=== PATIENT | male | born 1950 | race Caucasian/White ===

== ENCOUNTER 2019-10-09 05:55 | Inpatient (IN) ==
[2019-10-09] MEDS ORDERED: SODIUM CHLORIDE 0.9% 1000ML 1,000 ML IV ONE (06:56)
[2019-10-09 07:35] LABS: Basophils # (auto) 0.02 K/uL (0-0.2); Basophils % (auto) 0.2 %; Eosinophils # (auto) 0.39 K/uL (0-0.5); Eosinophils % (auto) 3.7 %; Hematocrit (blood only) 49.5 % (42-52); Hemoglobin 17.6 g/dL (14.0-18.0); Immature Granulocytes # (auto) 0.03 K/uL (0.00-0.02); Immature Granulocytes % (auto) 0.3 %; Lymphocytes # (auto) 1.27 K/uL (1.2-3.4); Mean Corpuscular Hemoglobin 34.6 pg (25-34); Mean Corpuscular Hgb Conc 35.6 g/dL (32-36); Mean Corpuscular Volume 97.2 fL (80-100); Mean Platelet Volume 10.9 fL (7.4-10.4); Monocytes # (auto) 0.79 K/uL (0.11-0.59); Monocytes % (auto) 7.5 %; Neutrophils # (auto) 8.05 K/uL (1.4-6.5); Neutrophils % (auto) 76.3 %; Platelet Count 210 K/uL (130-400); RDW Coefficient of Variation 13.3 % (11.5-14.5); RDW Standard Deviation 47.5 fL (36.4-46.3); Red Blood Count 5.09 M/uL (4.7-6.1); White Blood Count 10.55 K/uL (4.8-10.8)
[2019-10-09 07:45] LABS: INR 1.1 (0.9-1.1); Partial Thromboplastin Ratio 0.9; Partial Thromboplastin Time 24.8 Seconds (21.0-31.0); Prothrombin Time 10.9 Seconds (9.0-12.0)
[2019-10-09 07:54] LABS: Alanine Aminotransferase 51 U/L (12-78); Albumin Level 3.4 gm/dl (3.4-5.0); Aspartate Aminotransferase 37 U/L (15-37); BUN Creatinine Ratio 20.1 (10-20); Blood Urea Nitrogen 27 mg/dl (7-18); Calcium 9.2 mg/dl (8.5-10.1); Carbon Dioxide 28 mmol/L (21-32); Chloride 105 mmol/L (98-107); Est GFR (African American) 62.2; Est GFR (Non-African American) 53.7; Glucose 119 mg/dl (70-99); Magnesium 1.8 mg/dl (1.8-2.4); Potassium 3.8 mmol/L (3.5-5.1); Sodium 137 mmol/L (136-145)
[2019-10-09 08:05] LABS: Albumin Globulin Ratio 0.8 (0.9-2); Alkaline Phosphatase 79 U/L (45-117); Bilirubin,Total 0.7 mg/dl (0.2-1); Creatine Kinase 162 U/L (39-308); Globulin 4.4 gm/dl (2.5-4.0); Phosphorus 3.5 mg/dl (2.5-4.9); Total Protein 7.8 gm/dl (6.4-8.2); Troponin I < 0.015 ng/ml (0-0.045)
[2019-10-09 08:28] LABS: Lyme Ab IgG w/WB Rflx Negative (Negative); Lyme Ab IgM w/WB Rflx Negative (Negative)
[2019-10-09] MEDS ORDERED: OPTIRAY 320 125ml IV PRN (08:33)
--- NOTE | 2019-10-09 08:45 | CT Scan Report ---
CT head/brain wo con CLINICAL HISTORY: 69 years-old Male with LLE weakness. Acute strokelike symptoms TECHNIQUE: Multiple axial CT images of the head were obtained without contrast. A dose lowering tech nique was utilized adhering to the principles of ALARA. COMPARISON: Head CT 10/01/2019. FINDINGS: No acute intracranial hemorrhage, midline shift, intracranial mass, hydrocephalus, territorial ischem ia or abnormal extra-axial collection. Age-related involutional changes. Patchy white matter hypodens ities suggest chronic microvascular ischemic disease. Areas of encephalomalacia related to remote inf arctions noted about the cerebellar hemispheres, thalami and left parietal lobe. Cerebral vascular ca lcifications are noted. The calvarium is intact. Mastoid air cells are clear. Rightward bowing and spurring of the nasal sep cecily. Mild mucosal thickening of the ethmoid air cells. Prior bilateral lens replacement. Soft tissues are unremarkable. IMPRESSION: No acute intracranial abnormality. ACT 112: Negative or not required by law. The above report was generated using voice recognition software. It may contain grammatical, syntax o r spelling errors. Electronically signed by: Gene Velez M.D. 10/09/2019 8:44 AM
--- NOTE | 2019-10-09 08:58 | CT Scan Report ---
CT abd pelvis IV con only CLINICAL HISTORY: Left lower abdominal/back pain. Urinary tract infection. Sciatica. Left lower extre mity weakness. COMPARISON STUDY: 2008 TECHNIQUE: The patient was scanned in a dynamic helical fashion during intravenous administration of 120 cc of Optiray 320. A dose lowering technique was utilized adhering to the principles of ALARA. CT DOSE: FINDINGS: Lower chest: There are dependent atelectatic changes present. Liver: No focal hepatic masses are visualized. There is minimal intrahepatic ductal prominence.. Gallbladder: Not visualized presumed surgically absent Spleen: Normal in size and attenuation. Pancreas: Unremarkable. Adrenal glands: Unremarkable. Kidneys: No solid renal masses are visualized. There is mild bilateral perinephric stranding. Bowel: There are no transition zones to indicate bowel obstruction. There is no evidence of acute div erticulitis. There are postsurgical changes present within the bowel with several anastomotic suture lines. The patient appears be status post a right hemicolectomy. There is a bowel containing umbilica l hernia with out evidence for current obstruction. There is also evident for a fat-containing suprau mbilical ventral hernia. There is also evidence for a bowel containing infraumbilical hernia without evidence of obstruction Peritoneum: There is no intraperitoneal free air or abdominal ascites. Vasculature: There is no evidence of abdominal aortic aneurysm. There are moderately extensive athero matous vascular calcifications. Adenopathy: There are shotty aortocaval lymph nodes which are not pathologically enlarged by size cri teria. Pelvic viscera: There is gas present within the bladder. There is a sigmoid bowel loop at the level o f a sigmoid anastomosis which is in close proximity to the bladder. A fistula cannot be excluded. Cli nical correlation in this regard is advocated. Skeletal structures: No destructive osseous lesions are seen. IMPRESSION: 1. No evidence of bowel obstruction. No evidence of free air 2. Multiple ventral hernias 3. Gas within the bladder. There is a sigmoid bowel loop which appears adherent to the anterior aspec t the bladder. This could indicate a enterovesical fistula. Clinical correlation and correlation with urinalysis is recommended. 4. Mild fullness of the left renal collecting system and ureter. No obstructing calculi identified 5. Extensive arterial atherosclerotic disease. ACT 112: Negative or not required by law. Electronically signed by: Dennis Licona M.D. 10/09/2019 8:57 AM
--- NOTE | 2019-10-09 08:58 | CT Scan Report ---
CT angio head w con, CT angio neck with con CLINICAL HISTORY: 69 years-old Male with LLE weakness. Acute strokelike symptoms COMPARISON STUDY: CT head of same day, CTA neck 10/02/2019 TECHNIQUE: Following the IV administration of 120 cc of Optiray 320, CT angiogram of the head and neck was performed from the aortic arch to the skull apex. Images are reviewed in the axial, sagittal, and coronal planes. 3-D MIPS images are crea denisse and assessed. IV contrast was administered without complication. All measurements were obtained a ccording to NASCET criteria. A dose lowering technique was utilized adhering to the principles of ALA RA. CT DOSE: 2329.31 mGy.cm FINDINGS: Occluded proximal left subclavian artery with reconstitution of flow distal to the left vertebral art jair origin is suggestive of subclavian steal, unchanged from comparison. The remainder of the bilater al subclavian arteries appear patent. Severe mixed plaque of the distal common carotid arteries, galvan tid bulbs and proximal internal carotid arteries. This results in less than 50% stenosis on the right in approximately 50-60% stenosis at the origin of the left ICA. There is less than 50% stenosis of t he proximal right ICA. Severe mostly calcified plaque of the cavernous and supraclinoid segments. This results in 60% lumina l narrowing of the cavernous segment right ICA, image 110 series 5. There is less than 50% stenosis o f the cavernous segment left ICA. Mild luminal narrowing of the supraclinoid segments, likely seconda ry to associated atherosclerotic vascular disease. Mild less than 50% luminal narrowing involves the bilateral middle cerebral arteries. The bilateral anterior cerebral arteries are widely patent. No ab normal intracranial enhancement identified. Calcified plaque at the origin of the left vertebral artery without high-grade stenosis. The left micky tebral artery appears patent. Calcified plaque at the origin of the right ICA results in approximatel y 50% stenosis. High-grade stenosis of approximately 80% involves the V2 segment right vertebral killian ry at the level of C4 (image 143 series 6). Diminutive V4 segment of the right vertebral artery. Unremarkable and patent basilar artery. origin of the left posterior cerebral artery. Posterior cerebral arteries are patent. Cerebral venous sinuses are also patent. Lung apices are clear without pneumothorax. Emphysema. Multinodular goiter with 4.0 cm right thyroid nodule. Soft tissues are otherwise unremarkable. Multilevel degenerative changes of the spine. IMPRESSION: 1. Severe mixed plaque of the distal common carotid arteries, carotid bulbs and proximal internal car otid arteries redemonstrated. This results in less than 50% stenosis on the right and approximately 5 0-60% stenosis of the proximal left ICA. 2. Occlusion of the proximal left subclavian artery with reconstitution of flow at the level of the l eft vertebral artery origin, unchanged from 10/02/2019 suggestive of subclavian steal syndrome. 3. 80% luminal narrowing of the V2 segment right vertebral artery at the level of C4, also unchanged. 4. 60% luminal narrowing of the cavernous segment right ICA. 5. Emphysema. 6. Multinodular goiter. Findings could be correlated with a nonemergent follow-up thyroid ultrasound. ACT 112: Negative or not required by law. The above report was generated using voice recognition software. It may contain grammatical, syntax o r spelling errors. Electronically signed by: Gene Velez M.D. 10/09/2019 8:56 AM
[2019-10-09 09:32] LABS: Appearance Urine Clear (Clear); Bacteria Urine Automated 2+ (Negative); Bilirubin Urine Negative (Negative); Blood Urine 1+ (Negative); Color Urine Yellow; Glucose Urine UA Negative (Negative); Ketones Urine Negative (Negative); Leukocyte Esterase Urine Trace (Negative); Nitrite Urine Negative (Negative); Protein Urine 3+ (Negative); RBC Urine Automated 0-4 /hpf (0-4); Specific Gravity Urine 1.021 (1.000-1.030); Urobilinogen Urine Negative (Negative)
--- NOTE | 2019-10-09 10:40 | Electrocardiogram Report ---
Test Reason : Blood Pressure : / mmHG Vent. Rate : 066 BPM Atrial Rate : 066 BPM P-R Int : 134 ms QRS Dur : 100 ms QT Int : 422 ms P-R-T Axes : 065 -63 -06 degrees QTc Int : 442 ms Normal sinus rhythm Left anterior fascicular block Nonspecific ST abnormality Abnormal ECG No previous ECGs available Confirmed by Joseph Vo ([id number]) on 10/09/2019 10:39:56 AM Referred By: REFERRED SELF Confirmed By:Joseph Vo
--- NOTE | 2019-10-09 12:33 | Emergency Department Note ---
Entered by Mary Bowen acting as a scribe for History of Present Illness General Chief complaint: Leg Weakness, Bilateral Stated complaint: CAN NOT WALK Time Seen by Provider: 10/09/19 06:35 Source: patient and family History of Present Illness Onset (ago): day(s) 9 Location: left (leg) and right (leg) Severity: similar to prior episodes Pain Consistency: + intermittent Quality: + other (leg weakness) Exacerbated By: + movement Associated symptoms: + weakness and + other (Positive leg weakness, hip pain, lower back numbness, cramps in calves. Negative neck pain. ); no fever/chills and no headaches Treatments prior to arrival: none The patient is a 69 year old male presenting to the Emergency Department complaining of intermittent leg weakness starting 9 days ago. The patients reports that both of the patients lower extremities are weak. She states that the patient cannot walk at times and had to crawl to the bathroom this morning. She explains that walking worsens the patients leg weakness and causes pain in the patients left hip. The patient notes that after walking his lower back sometimes feels numb. He adds that he sometimes gets cramps in his calves. The patients reports that the patient has fallen a few times in the past few days. She states that the patient has experienced these symptoms before as he was admitted to [facility] about 1 week ago for these symptoms and was thought to have had a mini stroke. She explains that the patient has an appointment with Dr. Umana vascular surgeon in October 2019 but that the patient cant wait that long to be seen. She notes that the patient has taken any medications for his symptoms [employer]. She adds that the patient was an alcoholic but stopped drinking cold turkey 3 years ago. The patient denies hitting his head, neck pain, fevers, chills and recently drinking alcohol. Home Medications Home Medications Medication Instructions Recorded Confirmed Type Symbicort 2 puff INHALATION BID 10/01/19 10/09/19 History hydrochlorothiazide 12.5 mg PO DAILY 10/01/19 10/09/19 History lisinopril 20 mg PO DAILY 10/01/19 10/09/19 History metformin 500 mg PO DAILY 10/01/19 10/09/19 History metoprolol succinate 200 mg PO DAILY 10/01/19 10/09/19 History tamsulosin 0.4 mg PO DAILY 10/01/19 10/09/19 History aspirin 81 mg PO DAILY #30 tab 10/03/19 10/09/19 Rx atorvastatin 40 mg PO QAM 30 Days #30 tab 10/03/19 10/09/19 Rx cephalexin [Keflex] 500 mg PO BID 7 Days #14 cap 10/03/19 10/09/19 Rx clopidogrel 75 mg PO QAM 30 Days #30 tab 10/03/19 10/09/19 Rx omeprazole 200 mg PO DAILY 10/09/19 10/09/19 History Allergies Allergy/AdvReac Type Severity Reaction Status Date / Time No Known Allergies Allergy Unknown ` Verified 10/09/19 06:15 Past Med/Surg History Medical History Benign prostatic hyperplasia Diabetes mellitus type 2 in nonobese Hyperlipidemia Hypertension Left subclavian artery occlusion Subclavian steal syndrome of left subclavian artery Transient ischemic attack Surgical History No pertinent past surgical history Family History Mother No pertinent family history Social History Preferred Language: Japanese Communication Ability: Effective Quality Head Required: No Beliefs That Will Affect Care: None marital status: Current Living Situation: Spouse Feels Safe at Home: Yes Smoking Status: Current every day smoker Hx Substance Use: No Review of Systems See HPI for pertinent positives & negatives. and A total of 10 systems reviewed and were otherwise negative Physical Exam Vital Signs Vital Signs - 24 hr 10/09/19 05:59 10/09/19 07:30 10/09/19 08:01 Temperature 36.8 C Temperature Source Oral Pulse Rate 73 66 61 Pulse Rate from SpO2 Sensor 65 59 L Respiratory Rate 18 15 12 Respiratory Effort / Characteristics Non-Labored Spontaneous Respiratory Depth Normal Respiratory Pattern Regular Blood Pressure 194/92 H 137/69 182/76 H Blood Pressure Mean 126 96 109 Blood Pressure Position Sitting Pulse Oximetry 95 93 95 Oxygen Delivery Method Room Air Sepsis Recent Fever Within 48 Hours No Sepsis New/Unexplained Change in Mental Status No Sepsis Action Taken by Nursing No Action Required 10/09/19 08:19 10/09/19 09:21 10/09/19 09:30 Temperature Temperature Source Pulse Rate 58 L 63 58 L Pulse Rate from SpO2 Sensor 59 L 61 58 L Respiratory Rate 19 16 16 Respiratory Effort / Characteristics Respiratory Depth Respiratory Pattern Blood Pressure 182/76 H 165/80 H 182/85 H Blood Pressure Mean 109 135 119 Blood Pressure Position Pulse Oximetry 97 96 96 Oxygen Delivery Method Sepsis Recent Fever Within 48 Hours Sepsis New/Unexplained Change in Mental Status Sepsis Action Taken by Nursing 10/09/19 10:00 10/09/19 10:30 10/09/19 11:00 Temperature Temperature Source Pulse Rate 62 61 64 Pulse Rate from SpO2 Sensor 61 62 Respiratory Rate 15 18 18 Respiratory Effort / Characteristics Respiratory Depth Respiratory Pattern Blood Pressure 178/94 H 176/102 H 168/91 H Blood Pressure Mean 122 126 125 Blood Pressure Position Pulse Oximetry 97 97 Oxygen Delivery Method Sepsis Recent Fever Within 48 Hours Sepsis New/Unexplained Change in Mental Status Sepsis Action Taken by Nursing 10/09/19 11:30 10/09/19 12:00 10/09/19 12:30 Temperature Temperature Source Pulse Rate 57 L 59 L 62 Pulse Rate from SpO2 Sensor 59 L 62 Respiratory Rate 19 18 22 Respiratory Effort / Characteristics Respiratory Depth Respiratory Pattern Blood Pressure 187/87 H 192/85 H 194/101 H Blood Pressure Mean 114 134 138 Blood Pressure Position Pulse Oximetry 94 96 Oxygen Delivery Method Sepsis Recent Fever Within 48 Hours Sepsis New/Unexplained Change in Mental Status Sepsis Action Taken by Nursing 10/09/19 13:00 10/09/19 13:30 Temperature Temperature Source Pulse Rate 63 62 Pulse Rate from SpO2 Sensor 62 62 Respiratory Rate 16 19 Respiratory Effort / Characteristics Respiratory Depth Respiratory Pattern Blood Pressure 175/97 H 174/129 H Blood Pressure Mean 140 134 Blood Pressure Position Pulse Oximetry 94 94 Oxygen Delivery Method Sepsis Recent Fever Within 48 Hours Sepsis New/Unexplained Change in Mental Status Sepsis Action Taken by Nursing GENERAL: Awake, alert, fatigued-appearing, in no distress HENT: Normocephalic, atraumatic. Oropharynx with dry mucous membranes and otherwise unremarkable. EYES: Normal conjunctiva. Sclera non-icteric. EOMI. No nystamgus. PEARRL. NECK: Supple. No nuchal rigidity. FROM. No JVD. RESPIRATORY: CTAB. CARDIAC: Regular rate, normal rhythm. Extremities warm and well perfused. Pulses equal. ABDOMEN: Soft, non-distended. No tenderness to palpation. No rebound or guarding. No masses. RECTAL: Deferred. MUSCULOSKELETAL: Chest examination reveals no tenderness. The back is symmetrical on inspection without obvious abnormality. There is no CVA tenderness to palpation. No joint edema. LOWER EXTREMITIES: Calves are equal size bilaterally and non-tender. No edema. No discoloration. NEURO: Normal sensorium. Subtle weakness of LLE with 4/5 strength, otherwise 5/5 strength. SILT. Intact finger to nose and alternating palms. SKIN: No rash or jaundice noted. Course Course 0638: The patient was evaluated in room B3B, and a complete history and physical examination were performed. 0651: EMR reviewed. The patient was admitted from 10/01/2019 to 10/03/2019 after being transferred from [facility] where he had testing done that demonstrated an occluded left subclavian artery with subclavian steel syndrome. The patient had MRI and MRA of head and neck that showed sequela of chronic micro ischemic disease with few foci of chronic or at least late subacute micro embolic infarcts. He had an area of gliosis in the left parietal occipital region with associated region of hemosiderin depositions as well as in the right frontal lobe. He had high grade stenosis at the origin of the right external carotid and 50% stenosis of the proximal left internal carotid. He was put on Aspirin and Plavix. They thought that the subclavian artery occlusion was likely chronic. 1014: I reevaluated the patient at this time. I updated the patient and his on the patients imaging studies and blood work. 1020: I reviewed the patients CT. He reports that he has known for many years that he has a chronic colo-vesicle fistula. He has agreed with his urologist to manage expectantly. 1153: I updated the patient and his at this time. The patient is agreeable to go to inpatient rehabilitation. 1400: I discussed the patients case with Dr. Umana vascular surgeon who recommends that the patient stay in the hospital. 1415: I discussed the patients case with Dr. Heath [facility] hospitalist. He will evaluate the patient for further management. Administered Medications Ioversol (Optiray 320 125ml) 120 ml IV ONCE PRN PRN Reason: Interaction Checking Stop: 10/13/19 08:32 Last Admin: 10/09/19 08:35 Dose: 120 ml Documented by: [id number] Discontinued Medications Sodium Chloride (Nss 1000ml) 1,000 mls @ 999 mls/hr IV .Q1H1M ONE Stop: 10/09/19 07:56 Last Infusion: 10/09/19 08:46 Dose: 0 mls/hr Documented by: [id number] Admin: 10/09/19 07:40 Dose: 999 mls/hr Documented by: [id number] Medical Decision Making Differential Diagnosis Differential Diagnosis includes but is not limited to dehydration, stroke, anemia, hypoglycemia, hyponatremia, hypernatremia, urinary tract infection, pneumonia, bronchitis, sepsis, gastroenteritis, additional abdominal pathology, metabolic abnormalities and infections. Medical Records Attestation: I reviewed the patient's medical records. Home Medications Current Medication List: was personally reviewed by me Laboratory Data Attestation: I reviewed the patient's lab results. Result diagrams: 10/09/19 07:14 10/09/19 07:14 Lab Results 10/09/19 10/09/19 10/09/19 Range/Units 07:14 07:14 07:14 WBC 10.55 (4.8-10.8) K/uL RBC 5.09 (4.7-6.1) M/uL Hgb 17.6 (14.0-18.0) g/dL Hct 49.5 (42-52) % MCV 97.2 (80-100) fL MCH 34.6 H (25-34) pg MCHC 35.6 (32-36) g/dL RDW Std Deviation 47.5 H (36.4-46.3) fL RDW Coeff of Emily 13.3 (11.5-14.5) % Plt Count 210 (130-400) K/uL MPV 10.9 H (7.4-10.4) fL Immature Gran % (Auto) 0.3 % Neut % (Auto) 76.3 % Lymph % (Auto) 12.0 % Hodgeman % (Auto) 7.5 % Eos % (Auto) 3.7 % Baso % (Auto) 0.2 % Immature Gran # (Auto) 0.03 H (0.00-0.02) K/uL Neut # (Auto) 8.05 H (1.4-6.5) K/uL Lymph # (Auto) 1.27 (1.2-3.4) K/uL Hodgeman # (Auto) 0.79 H (0.11-0.59) K/uL Eos # (Auto) 0.39 (0-0.5) K/uL Baso # (Auto) 0.02 (0-0.2) K/uL PT 10.9 (9.0-12.0) Seconds INR 1.1 (0.9-1.1) APTT 24.8 (21.0-31.0) Seconds PTT Ratio 0.9 Sodium 137 (136-145) mmol/L Potassium 3.8 (3.5-5.1) mmol/L Chloride 105 (98-107) mmol/L Carbon Dioxide 28 (21-32) mmol/L Anion Gap 4.0 (3-11) BUN 27 H (7-18) mg/dl Creatinine 1.34 (0.6-1.4) mg/dl Est Cr Clr Drug Dosing 60.0 ml/min Est GFR ( Amer) 62.2 Est GFR (Non-Af Amer) 53.7 BUN/Creatinine Ratio 20.1 H (10-20) Glucose 119 H (70-99) mg/dl POC Glucose (70-99) mg/dl Calcium 9.2 (8.5-10.1) mg/dl Phosphorus 3.5 (2.5-4.9) mg/dl Magnesium 1.8 (1.8-2.4) mg/dl Total Bilirubin 0.7 (0.2-1) mg/dl AST 37 (15-37) U/L ALT 51 (12-78) U/L Alkaline Phosphatase 79 (45-117) U/L Ammonia (11-32) umol/L Total Creatine Kinase 162 (39-308) U/L Troponin I < 0.015 (0-0.045) ng/ml Total Protein 7.8 (6.4-8.2) gm/dl Albumin 3.4 (3.4-5.0) gm/dl Globulin 4.4 H (2.5-4.0) gm/dl Albumin/Globulin Ratio 0.8 L (0.9-2) TSH 2.260 (0.300-4.500) uIu/ml Urine Color Urine Appearance (Clear) Urine pH (4.5-7.5) Ur Specific [place] (1.000-1.030) Urine Protein (Negative) Urine Glucose (UA) (Negative) Urine Ketones (Negative) Urine Blood (Negative) Urine Nitrite (Negative) Urine Bilirubin (Negative) Urine Urobilinogen (Negative) Ur Leukocyte Esterase (Negative) Urine WBC (Auto) (0-5) /hpf Urine RBC (Auto) (0-4) /hpf U Hyaline Cast (Auto) (0-5) /lpf U Epithel Cells (Auto) (0-5) /lpf Urine Bacteria (Auto) (Negative) Ethyl Alcohol mg/dL (0-3) mg/dl Lyme Disease IgG Ab (Negative) Lyme Disease IgM Ab (Negative) 10/09/19 10/09/19 10/09/19 Range/Units 07:14 07:14 07:14 WBC (4.8-10.8) K/uL RBC (4.7-6.1) M/uL Hgb (14.0-18.0) g/dL Hct (42-52) % MCV (80-100) fL MCH (25-34) pg MCHC (32-36) g/dL RDW Std Deviation (36.4-46.3) fL RDW Coeff of Emily (11.5-14.5) % Plt Count (130-400) K/uL MPV (7.4-10.4) fL Immature Gran % (Auto) % Neut % (Auto) % Lymph % (Auto) % Hodgeman % (Auto) % Eos % (Auto) % Baso % (Auto) % Immature Gran # (Auto) (0.00-0.02) K/uL Neut # (Auto) (1.4-6.5) K/uL Lymph # (Auto) (1.2-3.4) K/uL Hodgeman # (Auto) (0.11-0.59) K/uL Eos # (Auto) (0-0.5) K/uL Baso # (Auto) (0-0.2) K/uL PT (9.0-12.0) Seconds INR (0.9-1.1) APTT (21.0-31.0) Seconds PTT Ratio Sodium (136-145) mmol/L Potassium (3.5-5.1) mmol/L Chloride (98-107) mmol/L Carbon Dioxide (21-32) mmol/L Anion Gap (3-11) BUN (7-18) mg/dl Creatinine (0.6-1.4) mg/dl Est Cr Clr Drug Dosing ml/min Est GFR ( Amer) Est GFR (Non-Af Amer) BUN/Creatinine Ratio (10-20) Glucose (70-99) mg/dl POC Glucose (70-99) mg/dl Calcium (8.5-10.1) mg/dl Phosphorus (2.5-4.9) mg/dl Magnesium (1.8-2.4) mg/dl Total Bilirubin (0.2-1) mg/dl AST (15-37) U/L ALT (12-78) U/L Alkaline Phosphatase (45-117) U/L Ammonia 30.0 (11-32) umol/L Total Creatine Kinase (39-308) U/L Troponin I (0-0.045) ng/ml Total Protein (6.4-8.2) gm/dl Albumin (3.4-5.0) gm/dl Globulin (2.5-4.0) gm/dl Albumin/Globulin Ratio (0.9-2) TSH (0.300-4.500) uIu/ml Urine Color Urine Appearance (Clear) Urine pH (4.5-7.5) Ur Specific [place] (1.000-1.030) Urine Protein (Negative) Urine Glucose (UA) (Negative) Urine Ketones (Negative) Urine Blood (Negative) Urine Nitrite (Negative) Urine Bilirubin (Negative) Urine Urobilinogen (Negative) Ur Leukocyte Esterase (Negative) Urine WBC (Auto) (0-5) /hpf Urine RBC (Auto) (0-4) /hpf U Hyaline Cast (Auto) (0-5) /lpf U Epithel Cells (Auto) (0-5) /lpf Urine Bacteria (Auto) (Negative) Ethyl Alcohol mg/dL < 3.0 (0-3) mg/dl Lyme Disease IgG Ab Negative (Negative) Lyme Disease IgM Ab Negative (Negative) 10/09/19 10/09/19 Range/Units 07:29 09:19 WBC (4.8-10.8) K/uL RBC (4.7-6.1) M/uL Hgb (14.0-18.0) g/dL Hct (42-52) % MCV (80-100) fL MCH (25-34) pg MCHC (32-36) g/dL RDW Std Deviation (36.4-46.3) fL RDW Coeff of Emily (11.5-14.5) % Plt Count (130-400) K/uL MPV (7.4-10.4) fL Immature Gran % (Auto) % Neut % (Auto) % Lymph % (Auto) % Hodgeman % (Auto) % Eos % (Auto) % Baso % (Auto) % Immature Gran # (Auto) (0.00-0.02) K/uL Neut # (Auto) (1.4-6.5) K/uL Lymph # (Auto) (1.2-3.4) K/uL Hodgeman # (Auto) (0.11-0.59) K/uL Eos # (Auto) (0-0.5) K/uL Baso # (Auto) (0-0.2) K/uL PT (9.0-12.0) Seconds INR (0.9-1.1) APTT (21.0-31.0) Seconds PTT Ratio Sodium (136-145) mmol/L Potassium (3.5-5.1) mmol/L Chloride (98-107) mmol/L Carbon Dioxide (21-32) mmol/L Anion Gap (3-11) BUN (7-18) mg/dl Creatinine (0.6-1.4) mg/dl Est Cr Clr Drug Dosing ml/min Est GFR ( Amer) Est GFR (Non-Af Amer) BUN/Creatinine Ratio (10-20) Glucose (70-99) mg/dl POC Glucose 117 H (70-99) mg/dl Calcium (8.5-10.1) mg/dl Phosphorus (2.5-4.9) mg/dl Magnesium (1.8-2.4) mg/dl Total Bilirubin (0.2-1) mg/dl AST (15-37) U/L ALT (12-78) U/L Alkaline Phosphatase (45-117) U/L Ammonia (11-32) umol/L Total Creatine Kinase (39-308) U/L Troponin I (0-0.045) ng/ml Total Protein (6.4-8.2) gm/dl Albumin (3.4-5.0) gm/dl Globulin (2.5-4.0) gm/dl Albumin/Globulin Ratio (0.9-2) TSH (0.300-4.500) uIu/ml Urine Color Yellow Urine Appearance Clear (Clear) Urine pH 5.0 (4.5-7.5) Ur Specific [place] 1.021 (1.000-1.030) Urine Protein 3+ H (Negative) Urine Glucose (UA) Negative (Negative) Urine Ketones Negative (Negative) Urine Blood 1+ H (Negative) Urine Nitrite Negative (Negative) Urine Bilirubin Negative (Negative) Urine Urobilinogen Negative (Negative) Ur Leukocyte Esterase Trace H (Negative) Urine WBC (Auto) 10-30 H (0-5) /hpf Urine RBC (Auto) 0-4 (0-4) /hpf U Hyaline Cast (Auto) 1-5 (0-5) /lpf U Epithel Cells (Auto) 10-20 H (0-5) /lpf Urine Bacteria (Auto) 2+ H (Negative) Ethyl Alcohol mg/dL (0-3) mg/dl Lyme Disease IgG Ab (Negative) Lyme Disease IgM Ab (Negative) Imaging Data Radiologist's Impression: Radiology results as stated below per my review and the radiologist's interpretation: CT angio head w con, CT angio neck with con CLINICAL HISTORY: 69 years-old Male with LLE weakness. Acute strokelike symptoms COMPARISON STUDY: CT head of same day, CTA neck 10/02/2019 TECHNIQUE: Following the IV administration of 120 cc of Optiray 320, CT angiogram of the head and neck was performed from the aortic arch to the skull apex. Images are reviewed in the axial, sagittal, and coronal planes. 3-D MIPS images are created and assessed. IV contrast was administered without complication. All measurements were obtained according to NASCET criteria. A dose lowering technique was utilized adhering to the principles of ALARA. CT DOSE: 2329.31 mGy.cm FINDINGS: Occluded proximal left subclavian artery with reconstitution of flow distal to the left vertebral artery origin is suggestive of subclavian steal, unchanged from comparison. The remainder of the bilateral subclavian arteries appear pa tent. Severe mixed plaque of the distal common carotid arteries, carotid bulbs and proximal internal carotid arteries. This results in less than 50% stenosis on the right in approximately 50-60% stenosis at the origin of the left ICA. There is less than 50% stenosis of the proximal right ICA. Severe mostly calcified plaque of the cavernous and supraclinoid segments. This results in 60% luminal narrowing of the cavernous segment right ICA, image 110 series 5. There is less than 50% stenosis of the cavernous segment left ICA. Mild luminal narrowing of the supraclinoid segments, likely secondary to associated atherosclerotic vascular disease. Mild less than 50% luminal narrowing involves the bilateral middle cerebral arteries. The bilateral anterior cerebral arteries are widely patent. No abnormal intracranial enhancement identified. Calcified plaque at the origin of the left vertebral artery without high-grade stenosis. The left vertebral artery appears patent. Calcified plaque at the origin of the right ICA results in approximately 50% stenosis. High-grade stenosis of approximately 80% involves the V2 segment right vertebral artery at the level of C4 (image 143 series 6). Diminutive V4 segment of the right vertebral artery. Unremarkable and patent basilar artery. origin of the left posterior cerebral artery. Posterior cerebral arteries are patent. Cerebral venous sinuses are also patent. Lung apices are clear without pneumothorax. Emphysema. Multinodular goiter with 4.0 cm right thyroid nodule. Soft tissues are otherwise unremarkable. Multilevel degenerative changes of the spine. IMPRESSION: 1. Severe mixed plaque of the distal common carotid arteries, carotid bulbs and proximal internal carotid arteries redemonstrated. This results in less than 50% stenosis on the right and approximately 50-60% stenosis of the proximal left ICA. 2. Occlusion of the proximal left subclavian artery with reconstitution of flow at the level of the left vertebral artery origin, unchanged from 10/02/2019 suggestive of subclavian steal syndrome. 3. 80% luminal narrowing of the V2 segment right vertebral artery at the level of C4, also unchanged. 4. 60% luminal narrowing of the cavernous segment right ICA. 5. Emphysema. 6. Multinodular goiter. Findings could be correlated with a nonemergent follow- up thyroid ultrasound. ACT 112: Negative or not required by law. The above report was generated using voice recognition software. It may contain grammatical, syntax or spelling errors. Electronically signed by: Gene Velez M.D. 10/09/2019 8:[address] head/brain wo con CLINICAL HISTORY: 69 years-old Male with LLE weakness. Acute strokelike symptoms TECHNIQUE: Multiple axial CT images of the head were obtained without contrast. A dose lowering technique was utilized adhering to the principles of ALARA. COMPARISON: Head CT 10/01/2019. FINDINGS: No acute intracranial hemorrhage, midline shift, intracranial mass, hydrocephalus, territorial ischemia or abnormal extra-axial collection. Age- related involutional changes. Patchy white matter hypodensities suggest chronic microvascular ischemic disease. Areas of encephalomalacia related to remote infarctions noted about the cerebellar hemispheres, thalami and left parietal lobe. Cerebral vascular calcifications are noted. The calvarium is intact. Mastoid air cells are clear. Rightward bowing and spurring of the nasal septum. Mild mucosal thickening of the ethmoid air cells. Prior bilateral lens replacement. Soft tissues are unremarkable. IMPRESSION: No acute intracranial abnormality. ACT 112: Negative or not required by law. The above report was generated using voice recognition software. It may contain grammatical, syntax or spelling errors. Electronically signed by: Gene Velez M.D. 10/09/2019 8:[address] abd pelvis IV con only CLINICAL HISTORY: Left lower abdominal/back pain. Urinary tract infection. Sciatica. Left lower extremity weakness. COMPARISON STUDY: 2008 TECHNIQUE: The patient was scanned in a dynamic helical fashion during intravenous administration of 120 cc of Optiray 320. A dose lowering technique was utilized adhering to the principles of ALARA. CT DOSE: FINDINGS: Lower chest: There are dependent atelectatic changes present. Liver: No focal hepatic masses are visualized. There is minimal intrahepatic ductal prominence.. Gallbladder: Not visualized presumed surgically absent Spleen: Normal in size and attenuation. Pancreas: Unremarkable. Adrenal glands: Unremarkable. Kidneys: No solid renal masses are visualized. There is mild bilateral perin ephric stranding. Bowel: There are no transition zones to indicate bowel obstruction. There is no evidence of acute diverticulitis. There are postsurgical changes present within the bowel with several anastomotic suture lines. The patient appears be status post a right hemicolectomy. There is a bowel containing umbilical hernia with out evidence for current obstruction. There is also evident for a fat-containing supraumbilical ventral hernia. There is also evidence for a bowel containing infraumbilical hernia without evidence of obstruction Peritoneum: There is no intraperitoneal free air or abdominal ascites. Vasculature: There is no evidence of abdominal aortic aneurysm. There are moder ately extensive atheromatous vascular calcifications. Adenopathy: There are shotty aortocaval lymph nodes which are not pathologically enlarged by size criteria. Pelvic viscera: There is gas present within the bladder. There is a sigmoid bowel loop at the level of a sigmoid anastomosis which is in close proximity to the bladder. A fistula cannot be excluded. Clinical correlation in this regard i s advocated. Skeletal structures: No destructive osseous lesions are seen. IMPRESSION: 1. No evidence of bowel obstruction. No evidence of free air 2. Multiple ventral hernias 3. Gas within the bladder. There is a sigmoid bowel loop which appears adherent to the anterior aspect the bladder. This could indicate a enterovesical fistula. Clinical correlation and correlation with urinalysis is recommended. 4. Mild fullness of the left renal collecting system and ureter. No obstructing calculi identified 5. Extensive arterial atherosclerotic disease. ACT 112: Negative or not required by law. Electronically signed by: Dennis Licona M.D. 10/09/2019 8:57 AM ECG Data Attestation: I personally reviewed and interpreted this ECG as follows: Indication: + weakness Rate (beats per minute): 66 Rhythm: + normal sinus ECG [place]: + Left axis deviation ECG ST segments: + Nonspecific ST abnormalities; no ST depression and no ST elevation ECG Findings: + Other (QT-c 442.) Blood Pressure Blood Pressure Findings: Elevated blood pressure Blood Pressure Disposition: further management by hospitalist SHAHANA Bang The patient is a pleasant 69-year-old gentleman with a past medical history of hypertension, hyperlipidemia, type 2 diabetes, TIA, prior alcoholism now sober for the past 3 years after having medical detox who presents emergency department with left lower extremity weakness that is been intermittent since being admitted to the hospital here at [facility] from 10/01-10/03 for evaluation of similar symptoms which also included left upper extremity weakness in the setting of having evaluation at [facility] which demonstrated an occluded left subclavian artery with suspicion for subclavian steal as well as MRI imaging which demonstrated chronic and possible subacute microembolic infarcts with resolution of symptoms during his hospitalization discharged home with plan for outpatient vascular follow-up per HPI. Patient reports weakness was worse last night and had to crawl to the bathroom. Review of the patient's discharge summary suggest the possibility of TIA versus possible recrudescence of the patient's prior stroke in the setting of a urinary tract infection. Patient was placed on ASA and plavix therapy. On arrival the patient is in no acute distress, afebrile stable vital signs. The patient appears clinically dry. On exam the patient has subtle left lower extremity weakness compared to right but with 4+/5 strength. Intact [id number] and alternating palms. Speech is fluent. EKG without overt acute ischemia. Chest x-ray negative for acute process. WBC, H/H and platelets within normal limits. Chemistry without acidosis. BUN/creatinine> 20 consistent with the patient's clinically dry appearance. Electrolytes and LFTs unremarkable. Ammonia within normal limits. CPK within normal limits. Troponin negative/undetectable. UA with WBCs and bacteria however with epithelial cells. CTA of the head and neck demonstrates the patient's previous vascular disease with stable findings. CT of the abdomen pelvis demonstrates air within the bladder with adherent bowel suggestive of colovesicular fistula. I did review these findings with the patient and he r eports he is aware of having this for many years now and has agreed with his urologist at [facility] for expected management. [facility] EMR reviewed where this was also documented colorectal office visit in May 2016 Thus, colovesicular fistula certainly would explain the patient's urine analysis. However given the patient is afebrile without leukocytosis will defer treatment at this time. Patient was able to ambulate in the emergency department. However given his intermittent weakness which certainly could be related to his previous subacute micro infarcts reasonable to proceed with inpatient acute rehab. The patient is agreeable with this. [facility] subsequently was requesting updated vascular surgery consultation prior to excepting. Did discuss the case with Dr. Dubois who was about to enter into the OR for a surgical case. Given the patient's weakness continues/is reoccurring recommends admission for further observation/evaluation including input from neurology. He will be available for inpatient team consultation. I did review this recommendation with the patient and his at the bedside. They are agreeable for admission. Case was discussed with Dr. Heath, [facility] hospitalist, who will evaluate the patient for admission. 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, Peripheral vascular disease, History of cerebrovascular accident, Bishop-vesical fistula Patient Disposition: Being Evaluated by Hospitalist Forms Stand Alone Forms: My [facility] Prescriptions Prescriptions: No Action metoprolol succinate 200 mg tablet extended release 24 hr 200 mg PO DAILY RF: 0 lisinopril 20 mg tablet 20 mg PO DAILY RF: 0 hydrochlorothiazide 25 mg tablet 12.5 mg PO DAILY RF: 0 metformin 500 mg tablet extended release 24 hr 500 mg PO DAILY RF: 0 Symbicort 160-4.5 mcg/actuation HFA aerosol inhaler 2 puff INHALATION BID RF: 0 tamsulosin 0.4 mg capsule 0.4 mg PO DAILY RF: 0 clopidogrel 75 mg Tablet 75 mg PO QAM 30 Days Qty: 30 RF: 3 atorvastatin 40 mg Tablet 40 mg PO QAM 30 Days Qty: 30 RF: 3 aspirin 81 mg tablet,delayed release (DR/EC) 81 mg PO DAILY Qty: 30 RF: 0 cephalexin [Keflex] 500 mg capsule 500 mg PO BID 7 Days Qty: 14 RF: 0 omeprazole 20 mg capsule,delayed release(DR/EC) 200 mg PO DAILY RF: 0 Referrals Referrals: Vick Roberts MD [Primary Care Provider] - The scribe's documentation has been prepared under my direction and personally reviewed by me in its entirety. I confirm that the note above accurately reflects all work, treatment, procedures, and medical decision making performed by me.
--- NOTE | 2019-10-09 15:32 | History & Physical Report ---
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 - Vascular surgery consulted, plan for surgical intervention on Tuesday per Dr. Dubois. - Continue ASA/Plavix therapy along with home Atorvastatin 40 mg daily. (2) Chronic occlusion of left subclavian vein: - As noted above, plan for surgical intervention on Tuesday. (3) Left hip pain: - C/o left hip pain specifically -- may be related to arthritis vs. vascular disease vs. other. - Will order XR of left hip for evaluation. (4) Peripheral vascular disease: - CT A/P with extensive arterial atherosclerotic plaque. - Has not had recent vascular imaging of lower extremities. - Arterial duplex of bilat LE pending to evaluate for stenosis. (5) Leg weakness: - PT/OT evaluation for discharge planning -- will likely need placement at [facility]. - Consulting neuro -- previous stroke work up during last admission showed old infarcts. Full stroke work up is not indicated at this time. - Arterial duplex and bilat LE dopplers pending. - XR of left hip and pelvis also pending -- consider MRI of lumbar spine to rule out cord compression. (6) Transient ischemic attack: - Recently admitted on 10/01 with TIA like symptoms. CTA neck showed extensive atherosclerotic disease, plan for intervention with Dr. Dubois on Tuesday. - Continue ASA/Plavix, statin as prescribed. - Currently has 30 day holter monitor -- started prior to admission. - Consult neuro due to worsening leg weakness. (7) UTI (urinary tract infection): - Discharged with course of Keflex; U/a was positive, repeat UC is pending. - Completed course of abx today, will hold further doses and monitor. (8) Benign prostatic hyperplasia: - Continue home Flomax as prescribed. (9) Diabetes mellitus type 2 in nonobese: - A1C is 6.4. - Hold metformin as inpatient. - SSI coverage. (10) Hyperlipidemia: - Continue statin as prescribed. - Lipid panel showed LDL 67 during last admission. (11) Hypertension: - Continue Metoprolol 200 mg daily and Lisinopril 20 mg daily. - Holding home HCTZ. (12) COPD (chronic obstructive pulmonary disease): - CTA showed emphysema. - Continue Symbicort with Duonebs q6hr scheduled (acute wheezing noted on exam) - No acute exacerbation noted; hold abx and steroids. (13) Multinodular goiter: - Noted on CTA of neck. - TSH is 2.26. - Recommend outpatient thyroid US. (14) DVT prophylaxis: - SCDs; ASA/Plavix home therapy; Heparin q12hr. Dispo: Med/surg with tele; plan for vascular intervention on Tuesday with Dr. Dubois. Will likely need rehab placement at discharge. History of Present Illness Chief Complaint: Cannot walk Primary Care Provider: Vick Roberts MD Mr. 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 Pt. was recently admitted 10/01-10/03 for TIA like symptoms. Neurology and vascular surgery were consulted during this admission and did not recommend acute intervention. He had ongoing left lower extremity weakness following discharge to home -- pt. reports weakness is intermittent, occurred every other day at home. He has pain in left lower extremity, mostly in his calf area after long distances. Also c/o pain in left hip joint specifically, has been an issue in addition to numbness/pain down his leg. He denies chest pain, SOB, dizziness or syncope, URI symptoms, fever/chills, N/V, diarrhea or constipation, abdominal pain, dysuria, hematuria, urinary retention. ER course: Vascular surgery was consulted, will admit for vascular intervention on Tuesday. Lab work did not show any significant findings. Head/neck CTA and head CT negative for acute findings compared to previous imaging. Abd CT showed extensive atherosclerotic disease. Allergies Allergy/AdvReac Type Severity Reaction Status Date / Time No Known Allergies Allergy Unknown ` Verified 10/09/19 06:15 Home Medications Home Medications Medication Instructions Recorded Confirmed Type Symbicort 2 puff INHALATION BID 10/01/19 10/09/19 History hydrochlorothiazide 12.5 mg PO DAILY 10/01/19 10/09/19 History lisinopril 20 mg PO DAILY 10/01/19 10/09/19 History metformin 500 mg PO DAILY 10/01/19 10/09/19 History metoprolol succinate 200 mg PO DAILY 10/01/19 10/09/19 History tamsulosin 0.4 mg PO DAILY 10/01/19 10/09/19 History aspirin 81 mg PO DAILY #30 tab 10/03/19 10/09/19 Rx atorvastatin 40 mg PO QAM 30 Days #30 tab 10/03/19 10/09/19 Rx cephalexin [Keflex] 500 mg PO BID 7 Days #14 cap 10/03/19 10/09/19 Rx clopidogrel 75 mg PO QAM 30 Days #30 tab 10/03/19 10/09/19 Rx omeprazole 200 mg PO DAILY 10/09/19 10/09/19 History Past Med/Surg History Medical History Benign prostatic hyperplasia Diabetes mellitus type 2 in nonobese Hyperlipidemia Hypertension Left subclavian artery occlusion Subclavian steal syndrome of left subclavian artery Transient ischemic attack Surgical History No pertinent past surgical history Family History Mother No pertinent family history Social History Preferred Language: Cook Islander Communication Ability: Effective Associate Product Manager Required: No Beliefs That Will Affect Care: None marital status: Current Living Situation: Spouse Feels Safe at Home: Yes Safety Concerns: Feels Safe At This Time Smoking Status: Former smoker Hx Alcohol Use: Yes Hx Substance Use: No Review of Systems Review of Systems: All systems reviewed & are unremarkable except as noted in HPI & below Constitutional: + fatigue and + weakness; no fever, no chills and no anorexia Respiratory: no cough, no dyspnea, no dyspnea on exertion and no wheezing Cardiovascular: no chest pain, no palpitations and no edema Gastrointestinal: no abdominal pain, no nausea, no vomiting and no constipation Genitourinary: no dysuria, no difficulty urinating, no decreased urination and no hematuria Musculoskeletal: + radicular pain, + joint pain (Left hip pain) and + muscle weakness; no back pain Integumentary: no non-healing lesions Neurologic: + gait abnormality, + unsteadiness, + localized weakness (left leg weakness ) and + numbness; no dizziness, no headache(s), no abnormal speech, no confusion and no memory loss Physical Exam Physical Exam: General: Resting comfortably HEENT: NC/AT; PERRLA with EOMI; Idana conjunctiva, MMM. No erythema of posterior pharynx Neck: Supple and nontender Cardiac: RRR Lungs: CTA bilaterally Abdomen: Bowel normoactive X 4; Nontender to palpation Back: NO spinous tenderness Extremities: Warm. No edema present Neuro: No focal weakness; +4/5 muscle strength in bilat LE extremities. Skin: No rash Results & Data Vital Signs (Past 12 Hours) Vital Signs Temp Pulse Resp BP Pulse Ox 10/09/19 13:30 62 19 174/129 H 94 10/09/19 13:00 63 16 175/97 H 94 10/09/19 12:30 62 22 194/101 H 96 10/09/19 12:00 59 L 18 192/85 H 94 10/09/19 11:30 57 L 19 187/87 H 10/09/19 11:00 64 18 168/91 H 10/09/19 10:30 61 18 176/102 H 97 10/09/19 10:00 62 15 178/94 H 97 10/09/19 09:30 58 L 16 182/85 H 96 10/09/19 09:21 63 16 165/80 H 96 10/09/19 08:19 58 L 19 182/76 H 97 10/09/19 08:01 61 12 182/76 H 95 10/09/19 07:30 66 15 137/69 93 10/09/19 05:59 36.8 C 73 18 194/92 H 95 Laboratory Results 10/09/19 10/09/19 10/09/19 Range/Units 09:19 07:29 07:14 WBC (4.8-10.8) K/uL RBC (4.7-6.1) M/uL Hgb (14.0-18.0) g/dL Hct (42-52) % MCV (80-100) fL MCH (25-34) pg MCHC (32-36) g/dL RDW Std Deviation (36.4-46.3) fL RDW Coeff of Emily (11.5-14.5) % Plt Count (130-400) K/uL MPV (7.4-10.4) fL Immature Gran % (Auto) % Neut % (Auto) % Lymph % (Auto) % [place] % (Auto) % Eos % (Auto) % Baso % (Auto) % Immature Gran # (Auto) (0.00-0.02) K/uL Neut # (Auto) (1.4-6.5) K/uL Lymph # (Auto) (1.2-3.4) K/uL [place] # (Auto) (0.11-0.59) K/uL Eos # (Auto) (0-0.5) K/uL Baso # (Auto) (0-0.2) K/uL PT (9.0-12.0) Seconds INR (0.9-1.1) APTT (21.0-31.0) Seconds PTT Ratio Sodium (136-145) mmol/L Potassium (3.5-5.1) mmol/L Chloride (98-107) mmol/L Carbon Dioxide (21-32) mmol/L Anion Gap (3-11) BUN (7-18) mg/dl Creatinine (0.6-1.4) mg/dl Est Cr Clr Drug Dosing ml/min Est GFR ( Amer) Est GFR (Non-Af Amer) BUN/Creatinine Ratio (10-20) Glucose (70-99) mg/dl POC Glucose 117 H (70-99) mg/dl Calcium (8.5-10.1) mg/dl Phosphorus (2.5-4.9) mg/dl Magnesium (1.8-2.4) mg/dl Total Bilirubin (0.2-1) mg/dl AST (15-37) U/L ALT (12-78) U/L Alkaline Phosphatase (45-117) U/L Ammonia (11-32) umol/L Total Creatine Kinase (39-308) U/L Troponin I (0-0.045) ng/ml Total Protein (6.4-8.2) gm/dl Albumin (3.4-5.0) gm/dl Globulin (2.5-4.0) gm/dl Albumin/Globulin Ratio (0.9-2) TSH (0.300-4.500) uIu/ml Urine Color Yellow Urine Appearance Clear (Clear) Urine pH 5.0 (4.5-7.5) Ur Specific [place] 1.021 (1.000-1.030) Urine Protein 3+ H (Negative) Urine Glucose (UA) Negative (Negative) Urine Ketones Negative (Negative) Urine Blood 1+ H (Negative) Urine Nitrite Negative (Negative) Urine Bilirubin Negative (Negative) Urine Urobilinogen Negative (Negative) Ur Leukocyte Esterase Trace H (Negative) Urine WBC (Auto) 10-30 H (0-5) /hpf Urine RBC (Auto) 0-4 (0-4) /hpf U Hyaline Cast (Auto) 1-5 (0-5) /lpf U Epithel Cells (Auto) 10-20 H (0-5) /lpf Urine Bacteria (Auto) 2+ H (Negative) Ethyl Alcohol mg/dL (0-3) mg/dl Lyme Disease IgG Ab Negative (Negative) Lyme Disease IgM Ab Negative (Negative) 10/09/19 10/09/19 10/09/19 Range/Units 07:14 07:14 07:14 WBC (4.8-10.8) K/uL RBC (4.7-6.1) M/uL Hgb (14.0-18.0) g/dL Hct (42-52) % MCV (80-100) fL MCH (25-34) pg MCHC (32-36) g/dL RDW Std Deviation (36.4-46.3) fL RDW Coeff of Emily (11.5-14.5) % Plt Count (130-400) K/uL MPV (7.4-10.4) fL Immature Gran % (Auto) % Neut % (Auto) % Lymph % (Auto) % [place] % (Auto) % Eos % (Auto) % Baso % (Auto) % Immature Gran # (Auto) (0.00-0.02) K/uL Neut # (Auto) (1.4-6.5) K/uL Lymph # (Auto) (1.2-3.4) K/uL [place] # (Auto) (0.11-0.59) K/uL Eos # (Auto) (0-0.5) K/uL Baso # (Auto) (0-0.2) K/uL PT (9.0-12.0) Seconds INR (0.9-1.1) APTT (21.0-31.0) Seconds PTT Ratio Sodium 137 (136-145) mmol/L Potassium 3.8 (3.5-5.1) mmol/L Chloride 105 (98-107) mmol/L Carbon Dioxide 28 (21-32) mmol/L Anion Gap 4.0 (3-11) BUN 27 H (7-18) mg/dl Creatinine 1.34 (0.6-1.4) mg/dl Est Cr Clr Drug Dosing 60.0 ml/min Est GFR ( Amer) 62.2 Est GFR (Non-Af Amer) 53.7 BUN/Creatinine Ratio 20.1 H (10-20) Glucose 119 H (70-99) mg/dl POC Glucose (70-99) mg/dl Calcium 9.2 (8.5-10.1) mg/dl Phosphorus 3.5 (2.5-4.9) mg/dl Magnesium 1.8 (1.8-2.4) mg/dl Total Bilirubin 0.7 (0.2-1) mg/dl AST 37 (15-37) U/L ALT 51 (12-78) U/L Alkaline Phosphatase 79 (45-117) U/L Ammonia 30.0 (11-32) umol/L Total Creatine Kinase 162 (39-308) U/L Troponin I < 0.015 (0-0.045) ng/ml Total Protein 7.8 (6.4-8.2) gm/dl Albumin 3.4 (3.4-5.0) gm/dl Globulin 4.4 H (2.5-4.0) gm/dl Albumin/Globulin Ratio 0.8 L (0.9-2) TSH 2.260 (0.300-4.500) uIu/ml Urine Color Urine Appearance (Clear) Urine pH (4.5-7.5) Ur Specific [place] (1.000-1.030) Urine Protein (Negative) Urine Glucose (UA) (Negative) Urine Ketones (Negative) Urine Blood (Negative) Urine Nitrite (Negative) Urine Bilirubin (Negative) Urine Urobilinogen (Negative) Ur Leukocyte Esterase (Negative) Urine WBC (Auto) (0-5) /hpf Urine RBC (Auto) (0-4) /hpf U Hyaline Cast (Auto) (0-5) /lpf U Epithel Cells (Auto) (0-5) /lpf Urine Bacteria (Auto) (Negative) Ethyl Alcohol mg/dL < 3.0 (0-3) mg/dl Lyme Disease IgG Ab (Negative) Lyme Disease IgM Ab (Negative) 10/09/19 10/09/19 Range/Units 07:14 07:14 WBC 10.55 (4.8-10.8) K/uL RBC 5.09 (4.7-6.1) M/uL Hgb 17.6 (14.0-18.0) g/dL Hct 49.5 (42-52) % MCV 97.2 (80-100) fL MCH 34.6 H (25-34) pg MCHC 35.6 (32-36) g/dL RDW Std Deviation 47.5 H (36.4-46.3) fL RDW Coeff of Emily 13.3 (11.5-14.5) % Plt Count 210 (130-400) K/uL MPV 10.9 H (7.4-10.4) fL Immature Gran % (Auto) 0.3 % Neut % (Auto) 76.3 % Lymph % (Auto) 12.0 % [place] % (Auto) 7.5 % Eos % (Auto) 3.7 % Baso % (Auto) 0.2 % Immature Gran # (Auto) 0.03 H (0.00-0.02) K/uL Neut # (Auto) 8.05 H (1.4-6.5) K/uL Lymph # (Auto) 1.27 (1.2-3.4) K/uL [place] # (Auto) 0.79 H (0.11-0.59) K/uL Eos # (Auto) 0.39 (0-0.5) K/uL Baso # (Auto) 0.02 (0-0.2) K/uL PT 10.9 (9.0-12.0) Seconds INR 1.1 (0.9-1.1) APTT 24.8 (21.0-31.0) Seconds PTT Ratio 0.9 Sodium (136-145) mmol/L Potassium (3.5-5.1) mmol/L Chloride (98-107) mmol/L Carbon Dioxide (21-32) mmol/L Anion Gap (3-11) BUN (7-18) mg/dl Creatinine (0.6-1.4) mg/dl Est Cr Clr Drug Dosing ml/min Est GFR ( Amer) Est GFR (Non-Af Amer) BUN/Creatinine Ratio (10-20) Glucose (70-99) mg/dl POC Glucose (70-99) mg/dl Calcium (8.5-10.1) mg/dl Phosphorus (2.5-4.9) mg/dl Magnesium (1.8-2.4) mg/dl Total Bilirubin (0.2-1) mg/dl AST (15-37) U/L ALT (12-78) U/L Alkaline Phosphatase (45-117) U/L Ammonia (11-32) umol/L Total Creatine Kinase (39-308) U/L Troponin I (0-0.045) ng/ml Total Protein (6.4-8.2) gm/dl Albumin (3.4-5.0) gm/dl Globulin (2.5-4.0) gm/dl Albumin/Globulin Ratio (0.9-2) TSH (0.300-4.500) uIu/ml Urine Color Urine Appearance (Clear) Urine pH (4.5-7.5) Ur Specific [place] (1.000-1.030) Urine Protein (Negative) Urine Glucose (UA) (Negative) Urine Ketones (Negative) Urine Blood (Negative) Urine Nitrite (Negative) Urine Bilirubin (Negative) Urine Urobilinogen (Negative) Ur Leukocyte Esterase (Negative) Urine WBC (Auto) (0-5) /hpf Urine RBC (Auto) (0-4) /hpf U Hyaline Cast (Auto) (0-5) /lpf U Epithel Cells (Auto) (0-5) /lpf Urine Bacteria (Auto) (Negative) Ethyl Alcohol mg/dL (0-3) mg/dl Lyme Disease IgG Ab (Negative) Lyme Disease IgM Ab (Negative) Supervising Physician Co-Signing Physician Notes I have seen and examined patient with Francine Leon PA-C and agree with assessment and plan. PG Care Time/CCT Total # of Minutes Spent Total Time Spent with Patient: Total time spent is greater than 50% in coordination of care (as documented) at patient's floor/unit and/or counseling patient:
[2019-10-09] MEDS ORDERED: lisinopriL 20 MG TAB PO ONE (18:10)
[2019-10-09] MEDS ORDERED: GLUCOSE 10 TABS/TUBE PO PRN (19:02)
[2019-10-09] MEDS ORDERED: ALBUT/IPRATROP 3MG/0.5MG NEB 3 ML VIAL NEB SCH (19:02)
[2019-10-09] MEDS ORDERED: POLYETHYLENE (MIRALAX) 17 GM PACK PO PRN (19:02)
[2019-10-09] MEDS ORDERED: GLUCAGON FOR INJ 1 MG VIAL SQ PRN (19:02)
[2019-10-09] MEDS ORDERED: CARBOHYDRATES FOR HYPOGLYCEMIA PO PRN (19:02)
[2019-10-09] MEDS ORDERED: GLUCOSE 40% GEL 15 GM TUBE PO PRN (19:02)
[2019-10-09] MEDS ORDERED: DEXTROSE 50% 50 ML SYRINGE IV PRN (19:02)
[2019-10-09] MEDS ORDERED: ACETAMINOPHEN 325 MG TAB PO PRN (19:02)
--- NOTE | 2019-10-09 20:16 | XRay Report ---
LEFT HIP 2 VIEWS CLINICAL HISTORY: Left hip pain. FINDINGS: AP and frog-leg views of left hip are correlated with pelvic CT performed the same day 10/09. The skeletal structures are osteopenic. There is no radiographic evidence of fracture involvin g the left hip or the visualized left hemipelvis. Mild degenerative joint space narrowing is seen in the hip. The overlying soft tissues are normal in appearance. Excreted IV contrast fills the bladder. Advanced atherosclerotic calcification is noted in the left femoral artery. IMPRESSION: No acute bony abnormality is identified. Electronically signed by: Daniel Sigala M.D. 10/09/2019 8:15 PM
--- NOTE | 2019-10-09 20:17 | XRay Report ---
LUMBAR SPINE 3 VIEWS CLINICAL HISTORY: Low back pain. FINDINGS: AP, lateral, and cone-down views of the lumbar spine are correlated with abdominal CT perfo rmed the same day 10/09/2019. The skeletal structures are osteopenic. There is no radiographic evidenc e of fracture or malalignment. Vertebral body height and alignment are maintained throughout the lumb ar spine. Anterior and lateral marginal osteophytes are seen throughout. The transverse and spinous p rocesses appear intact. Facet arthropathy is noted in the lower lumbar region. There is mild multilev el degenerative disc space narrowing. The bony pelvis is intact as imaged. Degenerative sclerosis is noted in the sacroiliac joints. There is no bowel obstruction. Excreted IV contrast fills the bladder . There is advanced atherosclerotic calcification of the abdominal aorta. IMPRESSION: No acute bony abnormality is identified. No change from today's CT scan. Electronically signed by: Daniel Sigala M.D. 10/09/2019 8:15 PM
[2019-10-09] MEDS: INSULIN ASPART 100 UNITS/ML 3 ML PEN SC SCH (20:36)
[2019-10-09] MEDS: HEPARIN SOD 5,000 UNIT/0.5 ML VIAL SQ SCH (21:46)
--- NOTE | 2019-10-09 23:46 | Ultrasound Report ---
ULTRASOUND BILATERAL LOWER EXTREMITY ARTERIAL; ANKLE-BRACHIAL INDICES CLINICAL HISTORY: Claudication. COMPARISON STUDY: No priors. TECHNIQUE: Real-time, grayscale, and color Doppler sonography of the arteries of the right and left l ower extremities performed from the inguinal crease to the foot. Ankle-brachial indices were assessed . FINDINGS: Ankle-brachial indices: Right brachial pressure measures 173. Pressures in the right posterior tibial artery measure 90 for an KATHY of 0.52, and pressures in the right dorsalis pedis artery measure 78 fo r an KATHY of 0.45. Pressures in the left posterior tibial artery measure 83 for an KATHY of 0.48, and pr essures in the left dorsalis pedis measure 73 for an KATHY of 0.42. Right lower extremity: Atherosclerotic plaque and irregularity are seen throughout the arteries of th e right lower extremity. There are triphasic arterial waveforms in the right common femoral artery wi th velocities measuring up to 221 cm/s. The profunda femoris artery is patent with velocities measuri ng up to 368 cm/s. The proximal superficial femoral artery is patent with velocities measuring up to 156 cm/s. There is focal occlusion of the right proximal superficial femoral artery with reconstituti on. There are blunted arterial waveforms in the mid superficial femoral artery with velocities measur ing up to 60 cm/s. Velocities in the distal superficial femoral artery measure up to 34 cm/s. The pop liteal artery is patent with velocities measuring up 37 cm/s. There is 3-vessel runoff to the foot. V elocities in the calf arteries measure up to 37 cm/s. The dorsalis pedis artery is patent with veloci ties measuring up to 25 cm/s. Left lower extremity: Atherosclerotic plaque and irregularity are seen throughout the arteries of the left lower extremity. There are normal triphasic waveforms in the common femoral artery with velocit ies measuring up to 93 cm/s. The profunda femoris artery is patent with velocities measuring up to 48 cm/s. There are blunted arterial waveforms throughout the remainder of the arteries of the left lowe r extremity. Velocities throughout the left superficial femoral artery measure up to 172 cm/s. Veloci ties in the popliteal artery measure up to 35 cm/s. There is 3-vessel runoff to the foot. Velocities in the calf arteries measure up to 30 cm/s. The dorsalis pedis artery is patent with velocities measu ring up to 11 cm/s. IMPRESSION: 1. Advanced atherosclerotic plaque and peripheral vascular disease as above. 2. There is a short segment of complete occlusion identified in the proximal right superficial femora l artery with reconstitution. 3. Markedly elevated velocities in the right profunda femoris artery indicate high-grade stenosis. 4. There is no sonographic evidence of focal vessel occlusion or high-grade stenosis of the arteries of the left lower extremity. 5. Ankle-brachial indices as above. Dictated: 10/09/2019 10:52 PM Transcribed: 10/09/2019 11:43 PM [place] [id number] Electronically signed by: Daniel Sigala M.D. 10/09/2019 11:44 PM
--- NOTE | 2019-10-09 23:46 | Ultrasound Report ---
ULTRASOUND BILATERAL LOWER EXTREMITY VENOUS CLINICAL HISTORY: Leg pain. COMPARISON STUDY: No priors. TECHNIQUE: Real-time, grayscale, and color Doppler sonography of the deep veins of the right and left lower extremity was performed from the inguinal crease to the calf. Compression and augmentation wer e utilized. FINDINGS: There is no sonographic evidence of deep venous thrombosis identified in the right or left lower extremity. The common femoral, superficial femoral, and popliteal veins are patent and normally compressible bilaterally. The greater saphenous vein and the profunda femoris vein at the junction w ith the common femoral vein are clear in both legs. The visualized calf veins are patent bilaterally. IMPRESSION: There is no sonographic evidence of deep venous thrombosis identified in the right or lef t lower extremity. ACT 112: Negative or not required by law. Electronically signed by: Daniel Sigala M.D. 10/09/2019 11:45 PM
[2019-10-10] MEDS: ALBUT/IPRATROP 3MG/0.5MG NEB 3 ML VIAL NEB SCH ×4 (02:30→19:53)
[2019-10-10 06:11] LABS: Hematocrit (blood only) 44.1 % (42-52); Hemoglobin 15.5 g/dL (14.0-18.0); Mean Corpuscular Hemoglobin 34.3 pg (25-34); Mean Corpuscular Hgb Conc 35.1 g/dL (32-36); Mean Corpuscular Volume 97.6 fL (80-100); Mean Platelet Volume 10.5 fL (7.4-10.4); Platelet Count 197 K/uL (130-400); RDW Coefficient of Variation 13.4 % (11.5-14.5); RDW Standard Deviation 47.5 fL (36.4-46.3); Red Blood Count 4.52 M/uL (4.7-6.1); White Blood Count 11.85 K/uL (4.8-10.8)
[2019-10-10 06:44] LABS: BUN Creatinine Ratio 16.8 (10-20); Calcium 8.9 mg/dl (8.5-10.1); Creatinine Clr Calc Pharmacy 59.1 ml/min; Est GFR (African American) 61.1; Est GFR (Non-African American) 52.7; Magnesium 1.8 mg/dl (1.8-2.4); Potassium 3.5 mmol/L (3.5-5.1)
[2019-10-10] MEDS: ATORVASTATIN 40 MG TAB PO SCH (07:55)
[2019-10-10] MEDS: METOPROLOL SUCC 50MG EXT REL TAB PO SCH (07:55)
[2019-10-10] MEDS: lisinopriL 20 MG TAB PO SCH (07:56)
[2019-10-10] MEDS: ASPIRIN 81 MG ECTAB PO SCH (07:56)
[2019-10-10] MEDS: TAMSULOSIN HCL 0.4 MG CAP PO SCH (07:56)
[2019-10-10] MEDS: CLOPIDOGREL BISULFATE 75 MG TAB PO SCH (07:56)
[2019-10-10] MEDS: PANTOprazole 40 MG TAB PO SCH (07:56)
--- NOTE | 2019-10-10 08:01 | Communication Note ---
Date of Service: October 10, 2019 Would recommend carotid subclavian bypass to provide better vertebrobasilar perfusion by changing the vertebral flow to antegrade. This would provide much better perfusion due to the significant narrowing of the right vertebral artery.
[2019-10-10] MEDS: FLUTICASONE/VILANTEROL 100/25MCG 14 PUFFS/INHALER INH SCH (09:20)
[2019-10-10] MEDS: HEPARIN SOD 5,000 UNIT/0.5 ML VIAL SQ SCH ×2 (09:21→20:13)
[2019-10-10] MEDS: INSULIN ASPART 100 UNITS/ML 3 ML PEN SC SCH ×4 (09:21→20:12)
--- NOTE | 2019-10-10 11:01 | Neurology Consultation ---
Date of Consultation October 10, 2019 Assessment & Plan (1) Weakness of left lower extremity: This patient's chief complaint of intermittent proximal left upper extremity/gluteal crampy pain with associated leg weakness, reproducibly triggered by extended walking, and resolving with rest, only to recur with extended walking, seems most consistent with either neurogenic or vascular claudication. It is notable that his recent arterial duplex suggested blockage and stenosis affecting the right lower limb, but nothing of significance on the left. Therefore, neurogenic claudication would seem more likely and I would recommend completion of a lumbar spine MRI for further evaluation. I am uncertain if an arteriogram of the lower extremities would provide more useful information. 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 Although his reported symptom of left leg weakness could be related to transient brainstem ischemia, he does not report any other associated symptoms suggestive of brainstem ischemia or vertebrobasilar insufficiency. Furthermore, his symptoms do not seem to be reproduced with extended use of both arms overhead. Nonetheless, I am unable to exclude the possibility that his subclavian steal is clinically significant and I see that Dr. Dubois has suggested a carotid to subclavian bypass to provide better vertebrobasilar perfusion. Although such a procedure may have benefit, I am uncertain if it would improve this patient's chief complaint which seems more suggestive of either neurogenic or vascular claudication to the left lower limb. (3) Cerebrovascular disease: This patient has rather extensive chronic cerebrovascular disease depicted on his brain MRI done at an outside facility on October 01, 2019. The study also reveals multifocal subacute microembolic infarcts within both cerebral hemispheres. I do not see any evidence of acute or subacute infarcts within the brainstem or vertebrobasilar distribution, however. There does appear to be evidence of chronic infarcts within the vertebrobasilar distribution, however, including a small chronic infarct within the left cerebellar hemisphere minimal ischemic changes within the central lizbeth, and chronic bilateral thalamic lacunar infarcts. Whether or not any, some, or all of these posterior circulation infarcts relate to his subclavian steal syndrome cannot be determined. I would recommend that this patient continue with daily low-dose aspirin and clopidogrel 75 mg/day. He should continue with atorvastatin as well. Would avoid dropping patient systolic blood pressure below 140 mmHg acutely to avoid triggering or aggravating any symptoms that could be related to cerebral ischemia. I would also like this patient have a repeat brain MRI completed in our facility to evaluate for any interval infarct or significant change. History of Present Illness Reason for Consultation: Leg weakness Requesting Physician: Francine Leon PA-C Attending Physician: Cam Navas History of Present Illness The patient is a 69-year-old male with a chief complaint of episodic crampy pain in the left buttock region and an associated feeling of leg weakness that occurs with prolonged walking and resolves within a few minutes of sitting down and resting. The symptom will then recur with prolonged walking again. The patient reports that he has been experiencing this symptom for at least the past 6 months. He complains of chronic low back pain for many years, although nothing significantly worse recently in this regard. He does not have a history of lumbar or spinal surgery. Furthermore, approximately 10 days ago, the patient experienced an episode of rather acute onset left leg numbness and weakness, not dissimilar to the above symptoms, but potentially worrisome for an acute infarct at that time. He had a Brain MRI completed at an outside facility on October 01, 2019 that revealed considerable chronic microvascular ischemic disease throughout the brain parenchyma with possible small subacute infarcts observed subcortically, within both cerebral hemispheres. MR angiography of the neck revealed a chronically occluded left subclavian artery with probable retrograde flow within the left vertebral artery. Imaging described in further detail below. Upon further questioning, the patient denies experiencing any vertigo, diplopia, dysarthria, or drop attack/leg weakness, or other symptoms potentially suggestive of vertebrobasilar insufficiency, either with or without prolonged use of his upper limbs as in lifting objects or using the limbs overhead as in putting things on shelves. He does admit to some mild crampy discomfort of the proximal left shoulder region with overhead maneuvers, but again nothing that provokes any specific or focal neurological symptoms. The patient was seen by Dr. Guzman, neurology, on October 02, during his previous recent admission to [facility]. His acute left leg weakness at that time was felt to be potentially related to cerebrovascular disease or TIA. Antiplatelet and statin therapy were recommended. The observed subclavian steal on imaging was not felt to be clinically significant given lack of associated symptomatology. Additional imaging has been completed during this most recent hospitalization including up-to-date CT angiography of the head and neck, lower extremity arterial duplex, as well as x-rays of the lumbar spine and hip. Imaging described in further detail below. Allergies Allergy/AdvReac Type Severity Reaction Status Date / Time No Known Allergies Allergy Unknown ` Verified 10/09/19 06:15 Home Medications Home Medications Medication Instructions Recorded Confirmed Type Symbicort 2 puff INHALATION BID 10/01/19 10/09/19 History hydrochlorothiazide 12.5 mg PO DAILY 10/01/19 10/09/19 History lisinopril 20 mg PO DAILY 10/01/19 10/09/19 History metformin 500 mg PO DAILY 10/01/19 10/09/19 History metoprolol succinate 200 mg PO DAILY 10/01/19 10/09/19 History tamsulosin 0.4 mg PO DAILY 10/01/19 10/09/19 History aspirin 81 mg PO DAILY #30 tab 10/03/19 10/09/19 Rx atorvastatin 40 mg PO QAM 30 Days #30 tab 10/03/19 10/09/19 Rx cephalexin [Keflex] 500 mg PO BID 7 Days #14 cap 10/03/19 10/09/19 Rx clopidogrel 75 mg PO QAM 30 Days #30 tab 10/03/19 10/09/19 Rx omeprazole 200 mg PO DAILY 10/09/19 10/09/19 History Patient History Medical History Benign prostatic hyperplasia Diabetes mellitus type 2 in nonobese Hyperlipidemia Hypertension Left subclavian artery occlusion Subclavian steal syndrome of left subclavian artery (Acute) Transient ischemic attack Surgical History No pertinent past surgical history Family History Mother No pertinent family history Social History Preferred Language: Cuban Communication Ability: Effective 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 Beliefs That Will Affect Care: None marital status: Current Living Situation: Spouse Feels Safe at Home: Yes Safety Concerns: Feels Safe At This Time Smoking Status: Former smoker Hx Alcohol Use: Yes Hx Substance Use: No Review of Systems Constitutional: no fever, no chills and no fatigue Eyes: no blind spots and no diplopia Ear, Nose, Mouth, Throat: no ear pain, no tinnitus and no hearing loss Respiratory: no cough and no dyspnea Cardiovascular: no chest pain and no palpitations Gastrointestinal: no nausea and no vomiting Genitourinary: no urinary incontinence Musculoskeletal: + back pain; no neck pain and no myalgia Integumentary: no rash and no lesions Neurologic: as per Subjective / HPI and + localized weakness; no syncope, no headache(s), no confusion and no memory loss Psychiatric: no depression and no anxiety Hematologic / Lymphatic: no easy bleeding and no easy bruising Physical Exam Physical Exam: The patient is a well-developed, well-nourished elderly male. He is alert and fully oriented. Recent and remote memory intact. Attention and concentration normal. Patient exhibits a normal spontaneous speech pattern. He is able to name objects and repeat phrases. Patient exhibits an age- appropriate fund of knowledge and normal comprehension of vocabulary. Visual simmons full to confrontation. Visual acuity normal. Pupils equal round react to light and accommodation. Eye movements normal. There is no ptosis, nystagmus, or ophthalmoplegia. Facial sensation intact. There is no facial droop or weakness. Hearing intact. Palate elevates to midline. Shoulder shrug intact. Tongue protrudes to midline. Sensation intact to all modalities in all 4 limbs. Deep tendon reflexes are intact and symmetrical for the arms and legs bilaterally. Plantar responses equivocal bilaterally. There is no dysdiadochokinesia or dysmetria [id number] or [id number] bilaterally. Ophthalmoscopic examination reveals normal-appearing optic disks and posterior segments. No papilledema or hemorrhages. Carotid pulses normal bilaterally, no bruits to auscultation. Gait and station normal. Patient exhibits normal muscle strength and tone for all 4 limbs. No atrophy. No abnormal movements observed. I was unable to provoke any subclavian steal/vertebrobasilar insufficiency symptoms by having the patient work both of his arms overhead for greater than 1 minute. He did complain of a slight crampy sensation affecting the proximal left shoulder region, again no other associated specific focal neurological symptoms were produced. Results & Data Vital Signs (Past 12 Hours) Vital Signs Temp Pulse Pulse Resp BP Pulse Ox 10/10/19 08:30 87 10/10/19 08:00 36.7 C 66 16 176/74 H 92 10/10/19 06:54 74 18 95 10/10/19 04:00 36.7 C 78 20 160/80 H 93 10/10/19 03:48 60 10/10/19 02:30 74 18 93 10/09/19 23:53 36.6 C 58 L 20 156/71 H 94 Laboratory Results WBC 11.85, hemoglobin 15.5, hematocrit 44.1, platelet count 197, sedimentation rate from October 01, 2019 was 27, sodium 139, potassium 3.5, BUN 23, creatinine 1.36, glucose 156, calcium 8.9, magnesium 1.8, creatine kinase 162, TSH 2.260, Lyme antibodies negative Diagnostic Findings CT of the head completed October 09, 2019- for hemorrhage or acute process. There is evidence of chronic microvascular ischemic disease as well as areas of encephalomalacia related to remote infarcts with several different brain regions including the cerebellar hemispheres, thalami, and left parietal lobe. I reviewed the images as well as the radiologist interpretation of this test. CT angiography of the head and neck revealed severe mixed plaque of the distal common carotid arteries, carotid bulbs, and proximal internal carotid arteries. No significant stenosis of either ICA noted, however. There is occlusion of the proximal left subclavian artery with reconstitution of flow at the level of the left vertebral origin, unchanged compared with the previous CTA done on October 02, 2019, suggestive of subclavian steal syndrome. There is an 80% luminal narrowing of the V2 segment of the right vertebral artery at the level of C4, also unchanged. There is a 60% luminal narrowing of the cavernous segment of the right ICA. MRI of the brain completed at an outside facility on October 01, 2019 is as described above in the history of present illness, I reviewed the images as well as the radiologist interpretation of this test. Lumbar spine x-ray completed October 09, 2019 reveals anterior and lateral marginal osteophytes throughout the lumbar region. There is facet arthropathy in the lower lumbar region. There is mild multilevel degenerative disc space narrowing. There are degenerative changes at the sacroiliac joints. Lower extremity arterial Dopplers reveal advanced atherosclerotic plaque and peripheral vascular disease. There is a short segment of complete occlusion within the proximal right superficial femoral artery with reconstitution. There are markedly elevated velocities in the right deep femoral artery suggestive of high-grade stenosis. There was no sonographic evidence of focal vessel occlusion or high-grade stenosis in the arteries of the left lower extremity.
--- NOTE | 2019-10-10 13:00 | Consultation ---
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 Pt also seen by Dr Dubois today. Recommends pt consider undergoing L carotid to subclavian bypass, to allow for antegrade vertebral flow in patent L vertebral art. Pt is agreeable. Planning to perform procedure on TUESDAY. Patient was seen, examined, and chart reviewed. Agree with exam and treatment plan of the Vascular PA. Present on Admission?: Yes History of Present Illness Reason for Consultation: subclavian steal Attending Physician: Cam Navas History of Present Illness 69 yo m with multiple medical problems includine COPD, HTN, DMII, hyperlipidemia, hx TIA, BPH, admitted after episode of L leg weakness yesterday, seen in consultation today for reeval of subclavian steal syndrome and possible vertebrobasilar insufficiency. Pt was seen last admission for similar problem, however, sx resolved and pt was d/c. Pt states he had an episode yesterday during which his left leg "went out" for a few hrs. Pt describes this as weakness and numbness and states he had to crawl to the bathroom. Pt denies any other associated sx, including COLÓN, fever, chest pain, SOB, other extremity weakness or numbness, amaurosis, facial droop, N/V, seizure, other complaints. CTA imaging from previous admission last week demonstrates L subclavian art occ lusion with reversal of flow in L vertebral and tight stenosis of R verterbral. Decreased flow was noted to cerebellum on MRA performed at outside hospital. Allergies Allergy/AdvReac Type Severity Reaction Status Date / Time No Known Allergies Allergy Unknown ` Verified 10/09/19 06:15 Home Medications Home Medications Medication Instructions Recorded Confirmed Type Symbicort 2 puff INHALATION BID 10/01/19 10/09/19 History hydrochlorothiazide 12.5 mg PO DAILY 10/01/19 10/09/19 History lisinopril 20 mg PO DAILY 10/01/19 10/09/19 History metformin 500 mg PO DAILY 10/01/19 10/09/19 History metoprolol succinate 200 mg PO DAILY 10/01/19 10/09/19 History tamsulosin 0.4 mg PO DAILY 10/01/19 10/09/19 History aspirin 81 mg PO DAILY #30 tab 10/03/19 10/09/19 Rx atorvastatin 40 mg PO QAM 30 Days #30 tab 10/03/19 10/09/19 Rx cephalexin [Keflex] 500 mg PO BID 7 Days #14 cap 10/03/19 10/09/19 Rx clopidogrel 75 mg PO QAM 30 Days #30 tab 10/03/19 10/09/19 Rx omeprazole 200 mg PO DAILY 10/09/19 10/09/19 History Patient History Medical History Benign prostatic hyperplasia Diabetes mellitus type 2 in nonobese Hyperlipidemia Hypertension Left subclavian artery occlusion Subclavian steal syndrome of left subclavian artery (Acute) Transient ischemic attack Surgical History No pertinent past surgical history Family History Mother No pertinent family history Social History Preferred Language: Spanish Communication Ability: Effective 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 Beliefs That Will Affect Care: None marital status: Current Living Situation: Spouse Feels Safe at Home: Yes Safety Concerns: Feels Safe At This Time Smoking Status: Former smoker Hx Alcohol Use: Yes Hx Substance Use: No Review of Systems Review of Systems: All systems reviewed & are unremarkable except as noted in HPI & below Physical Exam Physical Exam: Constitutional: WD/WN, vitals as above + obese, + disheveled, cooperative and comfortable; not in distress Eyes: PERRL, conjunctivae normal, anicteric sclerae ENMT: external ear and nose normal, oropharynx normal Ears: no hearing impairment Neck: trachea midline, no thyromegaly Respiratory: normal respiratory effort, lungs clear to auscultation Auscultation: + diminished lung sounds Cardiovascular: RRR, no murmur, no edema Vessels: + carotid bruit, posterior tibial pulses present (+1), dorsalis pedis pulses present (+1), brachial pulses present (+1 LUE, +3 RUE) and radial pulses present (+1 LUE, +3 RUE); + abnormal peripheral pulses Extremities: normal capillary refill; no edema Gastrointestinal (Abdomen): normal bowel sounds, soft, nontender, no hepatosplenomegaly Musculoskeletal: no cyanosis or clubbing, extremities motor strength 5/5 Skin: + rash (psoriatic); no ulcers Neurologic: moves all extremities and awake; no focal motor deficits and not confused Speech / Cognition: normal speech Motor/Sensory: no pronator drift and no sensory deficit Psychiatric: A+Ox3, euthymic affect Results & Data Vital Signs (Past 12 Hours) Vital Signs Temp Pulse Pulse Resp BP Pulse Ox 10/10/19 11:31 37.0 C 65 16 173/74 H 95 10/10/19 08:30 87 10/10/19 08:00 36.7 C 66 16 176/74 H 92 10/10/19 06:54 74 18 95 10/10/19 04:00 36.7 C 78 20 160/80 H 93 10/10/19 03:48 60 10/10/19 02:30 74 18 93
--- NOTE | 2019-10-10 13:19 | Hospitalist Progress Note ---
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 - Continue ASA/Plavix therapy along with home Atorvastatin 40 mg daily. - Vascular surgery consulted, plan for surgical intervention on Tuesday per Dr. Dubois. (2) Chronic occlusion of left subclavian vein: - As noted above, plan for surgical intervention on Tuesday. (3) Leg weakness: - Unclear etiology - has had intermittent episodes of left leg weakness at home, no further episodes since admission. - XR of lumbar spine and left hip negative. - MRI of L-spine and brain pending -- previous CVA work up was negative during last admission. - Arterial duplex of scooby BOURNE showed peripheral vascular disease - may be contributing to claudication/weakness. Vascular surgery following. - Neuro following, appreciate input. (4) Peripheral vascular disease: - CT A/P with extensive arterial atherosclerotic plaque. - Arterial duplex showed advanced atherosclerotic plaque and PVD. - Vascular following, appreciate input. (5) Transient ischemic attack: - Recently admitted on 10/01 with TIA like symptoms. CTA neck showed extensive atherosclerotic disease, plan for intervention with Dr. Dubois on Tuesday. - Continue ASA/Plavix, statin as prescribed. - Currently has 30 day holter monitor -- started prior to admission. - Brain MRI pending completion. (6) UTI (urinary tract infection): - Discharged with course of Keflex; U/a was positive, repeat UC +Streptococcus species. - Completed course of abx on day of discharge, will hold further doses. (7) Benign prostatic hyperplasia: - Continue home Flomax as prescribed. (8) Diabetes mellitus type 2 in nonobese: - A1C is 6.4. - Hold metformin as inpatient. - SSI coverage. (9) Hyperlipidemia: - Continue statin as prescribed. - Lipid panel showed LDL 67 during last admission. (10) Hypertension: - Continue Metoprolol 200 mg daily and Lisinopril 20 mg daily. - Holding home HCTZ. - Maintain SBP >140 per neuro recs. (11) COPD (chronic obstructive pulmonary disease): - CTA showed emphysema. - Continue Symbicort with Duonebs q6hr scheduled. - No acute exacerbation noted; hold abx and steroids. (12) Multinodular goiter: - Noted on CTA of neck. - TSH is 2.26. - Recommend outpatient thyroid US. (13) DVT prophylaxis: - SCDs; ASA/Plavix home therapy; Heparin q12hr. Dispo: Med/surg with tele; plan for vascular intervention on Tuesday with Dr. Dubois. PT evaluation pending. Supervising Physician Co-Signing Physician Notes Attending attestation: Chart reviewed in detail, care plan d/w PA Francine Pro. I agree with the wang components of her documentation. 69yo male with severe PAD presenting with left leg weakness. To date his w/u has revealed significant carotid and subclavian stenosis c/w subclavian steal syndrome. MRI l-spine and brain pending to r/o lumbar spine stenosis and/or stroke as the cause of his LLE weakness. Cont asa/plavix in meantime. Cam Navas MD Subjective Pt. reports LE weakness is resolved, has not had any further episodes since admission. He denies dizziness, chest pain, SOB, N/V, abd pain, constipation. Review of Systems Review of Systems: All systems reviewed & are unremarkable except as noted in HPI & below Constitutional: + fatigue and + weakness; no fever, no chills and no anorexia Respiratory: no cough, no dyspnea and no dyspnea on exertion Cardiovascular: no chest pain, no palpitations and no edema Gastrointestinal: no abdominal pain, no nausea, no vomiting and no constipation Genitourinary: no difficulty urinating Musculoskeletal: no back pain and no joint pain Integumentary: no non-healing lesions Physical Exam Physical Exam: General: Resting comfortably HEENT: NC/AT; PERRLA with EOMI; [place] conjunctiva, MMM. No erythema of posterior pharynx Neck: Supple and nontender Cardiac: RRR Lungs: CTA bilaterally Abdomen: Bowel normoactive X 4; Nontender to palpation Extremities: Warm. No edema present Neuro: No focal weakness; +4/5 muscle strength in bilat LE extremities. Skin: No rash Results & Data Vital Signs (Past 12 Hours) Vital Signs Temp Pulse Pulse Resp BP Pulse Ox 10/10/19 13:08 76 18 96 10/10/19 11:31 37.0 C 65 16 173/74 H 95 01/15/20 08:30 87 10/10/19 08:00 36.7 C 66 16 176/74 H 92 10/10/19 06:54 74 18 95 10/10/19 04:00 36.7 C 78 20 160/80 H 93 10/10/19 03:48 60 10/10/19 02:30 74 18 93 Laboratory Results 10/10/19 10/10/19 10/10/19 Range/Units 11:52 07:41 05:54 WBC (4.8-10.8) K/uL RBC (4.7-6.1) M/uL Hgb (14.0-18.0) g/dL Hct (42-52) % MCV (80-100) fL MCH (25-34) pg MCHC (32-36) g/dL RDW Std Deviation (36.4-46.3) fL RDW Coeff of Emily (11.5-14.5) % Plt Count (130-400) K/uL MPV (7.4-10.4) fL Sodium 139 (136-145) mmol/L Potassium 3.5 (3.5-5.1) mmol/L Chloride 106 (98-107) mmol/L Carbon Dioxide 28 (21-32) mmol/L Anion Gap 4.0 (3-11) BUN 23 H (7-18) mg/dl Creatinine 1.36 (0.6-1.4) mg/dl Est Cr Clr Drug Dosing 59.1 ml/min Est GFR ( Amer) 61.1 Est GFR (Non-Af Amer) 52.7 BUN/Creatinine Ratio 16.8 (10-20) Glucose 156 H (70-99) mg/dl POC Glucose 95 126 H (70-99) mg/dl Calcium 8.9 (8.5-10.1) mg/dl Magnesium 1.8 (1.8-2.4) mg/dl 10/10/19 10/09/19 Range/Units 05:54 19:33 WBC 11.85 H (4.8-10.8) K/uL RBC 4.52 L (4.7-6.1) M/uL Hgb 15.5 (14.0-18.0) g/dL Hct 44.1 (42-52) % MCV 97.6 (80-100) fL MCH 34.3 H (25-34) pg MCHC 35.1 (32-36) g/dL RDW Std Deviation 47.5 H (36.4-46.3) fL RDW Coeff of Emily 13.4 (11.5-14.5) % Plt Count 197 (130-400) K/uL MPV 10.5 H (7.4-10.4) fL Sodium (136-145) mmol/L Potassium (3.5-5.1) mmol/L Chloride (98-107) mmol/L Carbon Dioxide (21-32) mmol/L Anion Gap (3-11) BUN (7-18) mg/dl Creatinine (0.6-1.4) mg/dl Est Cr Clr Drug Dosing ml/min Est GFR ( Amer) Est GFR (Non-Af Amer) BUN/Creatinine Ratio (10-20) Glucose (70-99) mg/dl POC Glucose 111 H (70-99) mg/dl Calcium (8.5-10.1) mg/dl Magnesium (1.8-2.4) mg/dl PG Care Time/CCT Total # of Minutes Spent Total Time Spent with Patient: Total time spent is greater than 50% in coordination of care (as documented) at patient's floor/unit and/or counseling patient:
--- NOTE | 2019-10-10 22:23 | Magnetic Resonance Report ---
MR lumbar spine wo/w con CLINICAL HISTORY: Left lower extremity weakness DIFFICULTY WALKING. LEFT LEG NUMBNESS. TECHNIQUE: Sagittal and axial T1, T2 and STIR images were obtained. Images were acquired before and a fter administration of 10 cc of intravenous Gadavist. COMPARISON STUDY: No previous studies for comparison. OBSERVATIONS: The vertebral bodies and posterior elements appear intact. There is no abnormal bony signal present t o suggest a marrow replacement process. L1-2: No disc protrusions or extrusions. No evidence of spinal canal or neural foraminal compromise. L2-3: There is a mild circumferential disc bulge. There is prominent posterior epidural fat. There is mild spinal stenosis. There is no significant foraminal narrowing L3-4: There is a circumferential disc bulge. There is moderate to severe spinal stenosis. There is mi ld bilateral foraminal narrowing L4-5: There is a circumferential disc bulge with moderate spinal stenosis. There is mild bilateral fo raminal narrowing L5-S1: There is a mild circumferential disc bulge. There is facet joint arthropathy. There is no sign ificant spinal or foraminal stenosis. The conus medullaris and cauda equina appear normal. Postcontrast images reveal no pathologically enhancing lesions. IMPRESSION: 1. Moderate multilevel spondylytic changes with mild spinal stenosis the L2-3 level, moderate to evre re spinal stenosis at the L3-4 level, and moderate spinal stenosis at the L4-5 level. 2. No pathologically enhancing masses. ACT 112: Negative or not required by law. Electronically signed by: Dennis Licona M.D. 10/10/2019 10:22 PM
--- NOTE | 2019-10-10 22:39 | Magnetic Resonance Report ---
MRI OF THE BRAIN WITHOUT AND WITH IV CONTRAST CLINICAL HISTORY: Left lower extremity weakness. Difficulty walking. Left leg numbness. History of pr ior stroke. COMPARISON STUDY: Noncontrast head CT dated 10/09/2019 TECHNIQUE: MRI of the brain was performed from the vertex to the skull base utilizing various T1 and T2 weighted sequences. Following the IV administration of 10 mL of Gadavist contrast, additional enha nced images were obtained. FINDINGS: Sagittal T1, axial diffusion, proton density and T2 weighted axial, coronal FLAIR, and pre and post a xial T1-weighted images were acquired. These were supplemented with post gadolinium coronal T1 weight ed images. No intra or extra-axial mass lesions are visualized. There is a small focus of restricted water diffusion within the right parietal periventricular white matter consistent with acute/subacute infarct. There is no evidence of ventricular dilatation. Proton density T2-weighted and FLAIR images reveal scattered foci of increased T2 signal within the w isa matter, likely on a small vessel basis. There is scattered bilateral tiny lacunar infarcts. Ther e is an old left parieto-occipital infarct. There are old cerebellar infarcts. There are no abnormal flow voids. There is a 4 mm nonspecific focus of subcortical/gyral enhancement within the left frontal lobe. Ther e is no surrounding vasogenic edema. There is no evidence of restricted water diffusion. There is als o a tiny nonspecific in hepatic focus deep to the right insular cortex. There is a focus of gyral enh ancement, at the level of the remote left parieto-occipital lobe infarct. There is increased T1 signa l at this level consistent with laminar necrosis. The enhancement is likely on a post infarct basis. IMPRESSION: 1. Tiny acute/subacute infarct involving the right parietal periventricular white matter 2. Old left parieto-occipital infarct and scattered bilateral lacunar infarcts. Old bilateral cerebel lar infarcts. 3. Foci of increased T2 signal within the white matter consistent with small vessel ischemic disease. 4. Nonspecific 4 mm focus of subcortical/trial enhancement within the left frontal lobe. There is no surrounding vasogenic edema and no evidence of restricted water diffusion. An additional tiny nonspec ific focus of enhancement is visualized just deep to the right insular cortex. There is also a promin ent focus of gyral enhancement within the left occipital lobe in area of prior infarction. A 3 month follow up MRI study is recommended. ACT 112: Negative or not required by law. Electronically signed by: Dennis Licona M.D. 10/10/2019 10:38 PM
[2019-10-11 07:00] LABS: Hematocrit (blood only) 43.2 % (42-52); Hemoglobin 15.1 g/dL (14.0-18.0); Mean Corpuscular Hemoglobin 34.2 pg (25-34); Mean Platelet Volume 10.6 fL (7.4-10.4); Platelet Count 190 K/uL (130-400); RDW Coefficient of Variation 13.3 % (11.5-14.5); RDW Standard Deviation 47.2 fL (36.4-46.3); Red Blood Count 4.41 M/uL (4.7-6.1)
[2019-10-11 07:16] LABS: BUN Creatinine Ratio 16.5 (10-20); Calcium 8.7 mg/dl (8.5-10.1); Creatinine Clr Calc Pharmacy 58.8 ml/min; Est GFR (African American) 61.6; Est GFR (Non-African American) 53.2; Potassium 3.8 mmol/L (3.5-5.1)
[2019-10-11] MEDS: ALBUT/IPRATROP 3MG/0.5MG NEB 3 ML VIAL NEB SCH ×3 (07:32→19:57)
[2019-10-11] MEDS: INSULIN ASPART 100 UNITS/ML 3 ML PEN SC SCH ×4 (09:00→20:54)
[2019-10-11] MEDS: HEPARIN SOD 5,000 UNIT/0.5 ML VIAL SQ SCH ×2 (09:01→20:54)
[2019-10-11] MEDS: PANTOprazole 40 MG TAB PO SCH (09:03)
[2019-10-11] MEDS: FLUTICASONE/VILANTEROL 100/25MCG 14 PUFFS/INHALER INH SCH (09:03)
[2019-10-11] MEDS: TAMSULOSIN HCL 0.4 MG CAP PO SCH (09:03)
[2019-10-11] MEDS: ATORVASTATIN 40 MG TAB PO SCH (09:03)
[2019-10-11] MEDS: ASPIRIN 81 MG ECTAB PO SCH (09:03)
[2019-10-11] MEDS: CLOPIDOGREL BISULFATE 75 MG TAB PO SCH (09:03)
[2019-10-11] MEDS: METOPROLOL SUCC 50MG EXT REL TAB PO SCH (09:04)
[2019-10-11] MEDS: lisinopriL 20 MG TAB PO SCH (09:04)
--- NOTE | 2019-10-11 10:27 | Neurology Progress Note ---
Date of Service October 11, 2019 Assessment & Plan (1) Stroke: This patient has been experiencing subacute multifocal ischemic infarcts. The up-to-date brain MRI suggests that his most recent infarct is within the right parietal periventricular white matter. His CT angiography of the head and neck reveals a 50% stenosis of the right internal carotid artery and a 50 to 60% stenosis of the left internal carotid artery. There is also evidence of an 80% stenosis of the right vertebral artery, and a 60% stenosis of the cavernous segment of the right internal carotid artery. Also noted is a chronic occlusion of the proximal left subclavian artery with reconstitution of flow at the level of the left vertebral artery origin consistent with subclavian steal syndrome as an outside carotid duplex revealed reversal of flow through the left vertebral. Stroke etiology for this patient could include either embolism from large vessel atherosclerosis (aorta or carotids) or cardioembolism. I do not believe the observed subclavian steal phenomenon has been producing recurrent or reproducible symptoms in this patient. His more recent episode of left sided weakness could be explained by the acute to subacute appearing right parietal periventricular infarct, rather than subclavian steal phenomena or vertebrobasilar insufficiency. This patient should have an echocardiogram with bubble study. He may also be an appropriate candidate for a cardiac loop recorder and it may be worthwhile to ask for a cardiology assessment. I would recommend high intensity statin therapy as well as both aspirin and Plavix for this patient. I am uncertain if the left carotid to subclavian bypass as suggested by Dr. Dubois would be beneficial as he does not experience neurological symptoms triggered by using the left upper limb. I understand that the right vertebral artery has an 80% stenosis and there is retrograde flow through the left vertebral artery. However, I do not know if the suggested surgical procedure would lower his risk of future stroke, relative to the risk of the surgery. A second opinion with a neurovascular specialist at [facility] may be beneficial. (2) Lumbar spinal stenosis: This patient has multilevel lumbar spinal stenosis which I believe is contributing to some of his reported left lower extremity symptomatology which seems consistent with neurogenic claudication. An outpatient assessment with pain management may be worthwhile as he could benefit from a trial of epidural steroid injections. Physical therapy may also be helpful. Subjective Follow-up for cerebrovascular disease, subacute infarcts, subclavian steal/vertebrobasilar insufficiency, suspected lumbar spinal stenosis The patient denies experiencing any recurrence of left leg pain or weakness during this most recent hospitalization. He denies any headache, diplopia, vertigo, or dysarthria. A follow-up brain MRI completed yesterday reveals a tiny acute to subacute infarct within the right parietal periventricular white matter and multiple chronic infarcts, notably within the left parieto-occipital region, cerebellum, and bilateral subcortical regions. There are a few foci of nonspecific enhancement as well, one within the subcortical left frontal lobe and another within the deep right insular cortex. There is gyriform enhancement within the chronic left occipital infarct. These observed findings could be related to foci of subacute ischemia. A follow-up MRI in 3 months was suggested. I reviewed the images as well as the radiologist's interpretation of this test. A lumbar spine MRI completed yesterday reveals moderate multilevel spondylitic changes with mild spinal stenosis at L2-3, severe spinal stenosis at L3-4, and moderate spinal stenosis at L4-5. I reviewed the images as well as the radiologist interpretation of this test. Review of Systems Musculoskeletal: + back pain; no neck pain and no myalgia Neurologic: as per Subjective / HPI; no localized weakness, no loss of sensation, no headache(s), no confusion and no memory loss Physical Exam Physical Exam: The patient is alert and fully oriented. Attention and concentration normal. Patient exhibits a normal spontaneous speech pattern as well as an age-appropriate fund of knowledge. Visual simmons full to confro ntation. Visual acuity normal. Pupils equal round reactive to light and accommodation. Eye movements normal. There is no facial droop or weakness. Sensation intact all modalities in all 4 limbs. Deep tendon reflexes are intact and symmetrical for the arms and legs. Patient exhibits normal muscle strength and tone for all 4 limbs proximally and distally. No abnormal movements observed. Results & Data Vital Signs (Past 12 Hours) Vital Signs Temp Pulse Resp BP Pulse Ox 10/11/19 07:35 85 16 94 10/11/19 07:29 36.7 C 57 L 16 152/77 H 94 10/10/19 23:10 36.8 C 68 18 137/74 93 PG Care Time/CCT Total # of Minutes Spent Total Time Spent with Patient: Total time spent is greater than 50% in coordination of care (as documented) at patient's floor/unit and/or counseling patient:
[2019-10-11] MEDS ORDERED: PERFLUTREN LIPID MICROSPHERE (DEFINITY) IV ONE (11:43)
[2019-10-11] MEDS ORDERED: PHARMACIST DISCHARGE MED REC CONSULT PRN (15:47)
--- NOTE | 2019-10-11 18:43 | Hospitalist Progress Note ---
Date of Service October 11, 2019 Assessment & Plan (1) Cerebrovascular accident (CVA): - MRI shows acute vs subacute R parietal infarcts and chronic infarcts - it is uncertain if she is from this admission vs possibly when he presented earlier in the month for TIA symptoms - Possibly from vascular plaques vs cardioembolic; currently wearing a monitor from previous admission for TIA at beginning of month- will monitor on tele overnight - Echo - unremarkable - normal EF and evidence of LVH - Stroke protocol; PT/OT - overall symptoms improving - ASA/Plavix and Atorvastatin - may benefit from increase to 80 mg; consideration for anticoagulation - Neuro following - appreciate input (2) 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 - Continue ASA/Plavix therapy along with Atorvastatin - It is uncertain if this is contributing to presentation - Vascular surgery consulted - discussed with Dr. Dubois - planning on outpatient F/U and referral for second opinion (3) Chronic occlusion of left subclavian vein: - As noted above (4) Leg weakness: - Unclear etiology - has had intermittent episodes of left leg weakness at home, no further episodes since admission. - XR of lumbar spine and left hip negative. - MRI of L-spine and brain with CVAs as noted above and multiple levels of lumbar stenosis - Arterial duplex of scooby BOURNE showed peripheral vascular disease - may be contributing to claudication/weakness. -- Weakness seems to occur most commonly after prolonged activity and improving with rest which suggests possible claudication; lifting his leg on exam seemed to help with some discomfort which may support a vascular component; However possibily multifactorial between possible arthritic changes and maybe a sciatic component (5) Peripheral vascular disease: - CT A/P with extensive arterial atherosclerotic plaque. - Arterial duplex showed advanced atherosclerotic plaque and PVD. - Vascular following, appreciate input. (6) UTI (urinary tract infection): - Discharged with course of Keflex; U/A was positive, repeat UC +Streptococcus species. - Completed course of abx on day of discharge, will hold further doses. (7) Benign prostatic hyperplasia: - Continue home Flomax as prescribed. (8) Diabetes mellitus type 2 in nonobese: - A1C is 6.4. - Hold metformin as inpatient. - SSI coverage. (9) Hyperlipidemia: - Continue statin as prescribed. - Lipid panel showed LDL 67 during last admission. (10) Hypertension: - Continue Metoprolol 200 mg daily and Lisinopril 20 mg daily. - Holding home HCTZ. - Maintain SBP >140 per neuro recs. (11) COPD (chronic obstructive pulmonary disease): - CTA showed emphysema. - Continue Symbicort with Duonebs q6hr scheduled. - No acute exacerbation suspected - reports no worsening of symptoms and suspect likely chronic wheezing on exam - on RA currently and will monitor (12) Multinodular goiter: - Noted on CTA of neck. - TSH is 2.26. - Recommend outpatient thyroid US. (13) DVT prophylaxis: - SCDs; ASA/Plavix home therapy; Heparin q12hr. Dispo: Med/surg with tele - monitor for any A Fib given CVA; possibly home in AM Supervising Physician Co-Signing Physician Notes Attending attestation: Chart reviewed in detail, care plan d/w RAD Klein. I agree with the wang components of her documentation. 69yo male with severe PAD presenting with left leg weakness. MRI consistent with multiple subacute strokes in various locations suggestive of embolic source. The strokes explain the presenting left leg weakness. Cont asa/plavix for secondary prevention -- unless we find a source of embolus then in that case anticoagulation would be initiated. Additionally carotid and subclavian stenosis c/w subclavian steal syndrome has been found while hosopitalized. Vascular surgery was consulted; will have f/u with vascular post-d/c. Cam Navas MD Subjective Reports feeling well today. Lower extremity weakness improved. No focal neuro deficits. MRI however reveals acute/subacute CVA and old infarcts. There is concern for possible cardiac etiology and is currently wearing a Holter from previous admission. Will move to tele due to stroke protocol. Verbalizes no new complaints Review of Systems Constitutional: no fever and no chills Respiratory: + cough and + wheezing; no dyspnea Cardiovascular: no chest pain, no palpitations and no edema Gastrointestinal: no abdominal pain, no nausea, no vomiting, no constipation and no diarrhea/loose stools Genitourinary: no dysuria Integumentary: no rash Physical Exam Constitutional: well developed and well nourished; no acute distress and not ill appearing Eyes: + anicteric sclerae Neck: trachea midline Respiratory: normal respiratory effort and + cough Auscultation: + wheezes Cardiovascular: Rate/Rhythm: regular rate and regular rhythm Gastrointestinal (Abdomen): Inspection/Auscultation: normal bowel sounds Percussion/Palpation: abdomen soft; abdomen nontender Musculoskeletal: Head/Neck/Chest: normocephalic and head atraumatic L hip nontender to palp - reporting improved pain with leg raise Skin: no rashes, warm and dry Neurologic: moves all extremities Psychiatric: A+Ox3, euthymic affect Results & Data Vital Signs (Past 12 Hours) Vital Signs Temp Pulse Resp BP Pulse Ox 10/11/19 18:33 36.8 C 70 18 163/78 H 94 10/11/19 15:15 36.8 C 71 18 157/67 H 93 10/11/19 13:30 66 14 97 10/11/19 07:35 85 16 94 10/11/19 07:29 36.7 C 57 L 16 152/77 H 94 PG Care Time/CCT Total # of Minutes Spent Total Time Spent with Patient: Total time spent is greater than 50% in coordination of care (as documented) at patient's floor/unit and/or counseling patient:
[2019-10-12] MEDS: ALBUT/IPRATROP 3MG/0.5MG NEB 3 ML VIAL NEB SCH ×2 (07:22→14:28)
[2019-10-12] MEDS: TAMSULOSIN HCL 0.4 MG CAP PO SCH (08:51)
[2019-10-12] MEDS: ASPIRIN 81 MG ECTAB PO SCH (08:52)
[2019-10-12] MEDS: METOPROLOL SUCC 50MG EXT REL TAB PO SCH (08:52)
[2019-10-12] MEDS: lisinopriL 20 MG TAB PO SCH (08:52)
[2019-10-12] MEDS: CLOPIDOGREL BISULFATE 75 MG TAB PO SCH (08:52)
[2019-10-12] MEDS: ATORVASTATIN 40 MG TAB PO SCH (08:52)
[2019-10-12] MEDS: FLUTICASONE/VILANTEROL 100/25MCG 14 PUFFS/INHALER INH SCH (08:53)
[2019-10-12] MEDS: PANTOprazole 40 MG TAB PO SCH (08:53)
[2019-10-12] MEDS: INSULIN ASPART 100 UNITS/ML 3 ML PEN SC SCH ×2 (08:55→13:35)
[2019-10-12] MEDS: HEPARIN SOD 5,000 UNIT/0.5 ML VIAL SQ SCH (08:58)
[2019-10-12] MEDS ORDERED: STROKE PATIENT DISCHARGE STA (12:06)
--- NOTE | 2019-10-12 18:39 | Discharge Summary ---
Date of Service October 12, 2019 Admission HPI Per Admitting Provider Mr. 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 Pt. was recently admitted 10/01-10/03 for TIA like symptoms. Neurology and vascular surgery were consulted during this admission and did not recommend acute intervention. He had ongoing left lower extremity weakness following discharge to home -- pt. reports weakness is intermittent, occurred every other day at home. He has pain in left lower extremity, mostly in his calf area after long distances. Also c/o pain in left hip joint specifically, has been an issue in addition to numbness/pain down his leg. He denies chest pain, SOB, dizziness or syncope, URI symptoms, fever/chills, N/V, diarrhea or constipation, abdominal pain, dysuria, hematuria, urinary retention. ER course: Vascular surgery was consulted, will admit for vascular intervention on Tuesday. Lab work did not show any significant findings. Head/neck CTA and head CT negative for acute findings compared to previous imaging. Abd CT showed extensive atherosclerotic disease. Principal Diagnosis CVA Discharge Exam Constitutional well developed and well nourished; no acute distress and not ill appearing Eyes + anicteric sclerae Neck trachea midline Respiratory normal respiratory effort and + cough Auscultation: + wheezes Cardiovascular Rate/Rhythm: regular rate and regular rhythm Gastrointestinal (Abdomen) Inspection/Auscultation: normal bowel sounds Percussion/Palpation: abdomen soft; abdomen nontender Musculoskeletal Head/Neck/Chest: normocephalic and head atraumatic Skin no rashes, warm and dry Neurologic moves all extremities Psychiatric A+Ox3, euthymic affect Discharge Data Allergies Allergy/AdvReac Type Severity Reaction Status Date / Time No Known Allergies Allergy Unknown ` Verified 10/09/19 06:15 Consultations 10/09/19 14:13 ED Decision to Admit Stat 10/09/19 19:02 Consult Neurology Routine Consult Vascular Surgery Routine Ordered Studies 10/09/19 06:50 CT angio head w con Stat CT angio neck with con Stat CT head/brain wo con Stat 10/09/19 07:07 CT abd pelvis IV con only Stat 10/09/19 19:02 US arterial duplex LE BI Routine US venous doppler LE BI Urgent 10/10/19 11:48 MR brain wo/w con Routine MR lumbar spine wo/w con Routine Hospital Course (1) Cerebrovascular accident (CVA): - MRI shows acute vs subacute R parietal infarcts and chronic infarcts - it is uncertain if this is from this admission vs possibly when he presented earlier in the month for TIA symptoms - Possibly from vascular plaques vs cardioembolic; currently wearing a monitor from previous admission for TIA at beginning of month - Echo - unremarkable - normal EF and evidence of LVH - Stroke protocol; PT/OT - overall symptoms improving - ASA/Plavix and Atorvastatin increased to 80 mg daily - Neuro following - appreciate input - discussed with Dr. Mace plan to continue current regimen and F/U with cardiology with monitor and consideration for loop recorder -- No arrhythmia noted during admission but will need assessment with Holter; no anticoagulation suggested at this time and discussed with neuro as some small hemorrhagic component with old CVAs and will defer AC unless A Fib/Flutter noted -- Recommendation given to see cardiology in regards to Holter and consider loop recorder; may also need for clearance if endarterectomy is suggested (2) 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 - Continue ASA/Plavix therapy along with Atorvastatin - It is uncertain if this is contributing to presentation or if surgical input will change stroke risk - Vascular surgery consulted - discussed with Dr. Dubois - planning on outpatient F/U and referral for second opinion to be arranged by vascular (3) Chronic occlusion of left subclavian vein: - As noted above (4) Leg weakness: - Unclear etiology - has had intermittent episodes of left leg weakness at home, no further episodes since admission. - XR of lumbar spine and left hip negative. - MRI of L-spine and brain with CVAs as noted above and multiple levels of lumbar stenosis - Arterial duplex of scooby BOURNE showed peripheral vascular disease - may be contributing to claudication/weakness. -- Weakness seems to occur most commonly after prolonged activity and improving with rest which suggests possible claudication; lifting his leg on exam seemed to help with some discomfort which may support a vascular component; However possibily multifactorial between possible arthritic changes and maybe a sciatic component (5) Peripheral vascular disease: - CT A/P with extensive arterial atherosclerotic plaque. - Arterial duplex showed advanced atherosclerotic plaque and PVD. (6) UTI (urinary tract infection): - Discharged with course of Keflex on last admission; U/A and cx positive - with multidrug resistant enterococcus -- Patient has history of fistula and bowel surgery - believes he may have tracting into the urinary system and has followed with Urology for this - likely he may ultimately always yield a contaminated UA/UCx - currently urinary symptoms stable given his known prostatic enlargement - Discussed UA/Cx with and patient and advised to report any increasing urinary symptoms to then consider further treatment - This current enterococcus faecium reveals only sensitivity to Daptomycin, Levofloxacin (intermediate to Cipro), and Vanc - is intermediate with Macrobid (7) Benign prostatic hyperplasia: - Continue home Flomax as prescribed. (8) Diabetes mellitus type 2 in nonobese: - A1C is 6.4. - Continue home regimen (9) Hyperlipidemia: - Continue statin as prescribed. - Lipid panel showed LDL 67 during last admission. (10) Hypertension: - Continue Metoprolol 200 mg daily and Lisinopril 20 mg daily; Continue HCTZ (11) COPD (chronic obstructive pulmonary disease): - CTA showed emphysema. - Continue Symbicort - No acute exacerbation suspected - reports no worsening of symptoms or change in sputum; lungs sound clear today/diminished at bases (12) Multinodular goiter: - Noted on CTA of neck. - TSH is 2.26. - Recommend outpatient thyroid US if not already completed Total Time Total Time Spent Total Time Spent (In Minutes): Greater than 30 minutes Discharge Plan Discharge Items Patient Disposition: Home - Self-Care Reason For Visit: DIFFICULTY AMBULATING Discharge Diagnosis: Stroke Activity: Resume your previous activity Non-emergency contact: Primary Care Provider Call non-emergency contact if: you have any medication questions, your symptoms worsen and you have a fever Follow-up/Referrals: James Mace MD [Physician] - (Please, follow up at [facility] Neurology Office with Dr. Mace. *A nurse from this office will call you with the appointment information. If you have any questions, call the office at [phone].) Joseph Vo MD [Physician] - 11/13/19 9:45 am (Please, follow up at [facility] Cardiology Office with Dr. Vo on TuesdayNovember 13 at 10:00 am (arrive 9:45 am). *The office is located in [address] of [facility], next to this hospital. If you need to change this appointment, call the office at [phone].) Vick Roberts MD [Primary Care Provider] - (Please, follow up with Dr. Roberts. *The office number is [phone].) Prashant Dubois MD [Physician] - 11/01/19 11:30 am (Please, follow up with Dr. Dubois on November 01 at 11:30 am. *If you need to change this appointment, call the office at [phone].) Diet: Heart Healthy Addtl Attending Provider Instructions: Stroke: - Your MRI of your brain does reveal you had a stroke possibly in the last few days. It also shows you have had small strokes in the past. - The plan will be to prevent future strokes by continuing aspirin and plavix. We will also increase your cholesterol medicine (atorvastatin) to 80 mg. - Continue to wear your holter monitor as we are looking for an irregular heart rhythm that may be putting you at risk for a stroke. This will get reviewed by a flight agent to see if we need to adjust your treatment - You were also found to have some blockages in the vessels of your neck. This can put you at risk for stroke and currently will be seen for a second opinion about possible surgical correction of the vessels. -- Dr. Dubois (vascular surgeon) will arrange the follow up to discuss options. - Will also set you up with a heart doctor follow-up to discuss the neck vessels and possibly rhythm control. You may benefit from a loop record (which is basically a heart monitor that is inserted under the skin) Leg Weakness: - This is likely from multiple causes. 1. Possibly the worsening symptoms may have been when the stroke happened 2. There may be some arthritis/muscles or tendon strain 3. You do have some narrowing of the spine/vertebrae called lumbar stenosis 4. You may also have some claudication. This is when reduced blood flow (especially when walking around a lot) causes pain or weakness. The treatment is aspirin and plavix and resting until the legs feel better. Elevated them as needed can help too Urinary System: - You do have some bacteria on your culture. Given your bowel and urinary history you likely will always have bacteria in the urine. Recommend to hold antibiotics at this time. If you do develop symptoms (frequency, burning, increased pain, fever) definitely talk with your doctor. Infections in the urine may be tricky for you because of your fistula as this can cause bacteria to leak into the urine all the time. -- Thankfully you do not have an elevated white blood cell count (test for infection) or any fevers . Who to Call and When: Medical Emergencies: Call 911 immediately if you experience any of the foll owing warning signs and symptoms of Stroke: * Sudden numbness or weakness of the face, arm or leg, especially on one side of the body * Sudden confusion, trouble speaking or understanding * Sudden trouble seeing in one or both eyes * Sudden trouble walking, dizziness, loss of balance or coordination * Sudden severe headache with no cause Do not delay calling 911 if you experience any warning signs or symptoms of a stroke. Delay in seeking medical attention may affect what treatments can be given to you. . Risk Factors for Stroke: You can reduce your chances of stroke by working with your medical provider to adopt a healthy lifestyle. Some specific ways to lower your chance of stroke are: * If you are a smoker, now is the time to stop smoking cigarettes * If you are diabetic, improve the control of your blood sugars * Avoid excessive amounts of alcohol * Control high blood pressure * Lose weight if you are overweight * Be sure to lead an active lifestyle * Eat a healthy diet low in salt, cholesterol and fat You should know about other risk factors for stroke that you are unable to control. These include: * Age 55 years or older * Male gender * Certain racial groups: , or / * Family History of Stroke, Mini stroke or Heart Attack * Sickle Cell Disease Follow Up: It is important for you to keep your follow up appointments with your medical provider. Who to Call and When: Medical Emergencies: Call 911 immediately if you experience any of the following warning signs and symptoms of Stroke: * Sudden numbness or weakness of the face, arm or leg, especially on one side of the body * Sudden confusion, trouble speaking or understanding * Sudden trouble seeing in one or both eyes * Sudden trouble walking, dizziness, loss of balance or coordination * Sudden severe headache with no cause Do not delay calling 911 if you experience any warning signs or symptoms of a stroke. Delay in seeking medical attention may affect what treatments can be given to you. . Pending Studies at Discharge: No Stand-Alone Forms: My [facility], Smoking Cessation Medications and DC Order Prescriptions: New atorvastatin 80 mg tablet 80 mg PO DAILY 30 Days Qty: 30 RF: 0 Continued metoprolol succinate 200 mg tablet extended release 24 hr 200 mg PO DAILY RF: 0 lisinopril 20 mg tablet 20 mg PO DAILY RF: 0 hydrochlorothiazide 25 mg tablet 12.5 mg PO DAILY RF: 0 metformin 500 mg tablet extended release 24 hr 500 mg PO DAILY RF: 0 Symbicort 160-4.5 mcg/actuation HFA aerosol inhaler 2 puff INHALATION BID RF: 0 tamsulosin 0.4 mg capsule 0.4 mg PO DAILY RF: 0 clopidogrel 75 mg Tablet 75 mg PO QAM 30 Days Qty: 30 RF: 3 aspirin 81 mg tablet,delayed release (DR/EC) 81 mg PO DAILY Qty: 30 RF: 0 Discontinued atorvastatin 40 mg Tablet 40 mg PO QAM 30 Days Qty: 30 RF: 3 cephalexin [Keflex] 500 mg capsule 500 mg PO BID 7 Days Qty: 14 RF: 0 Discharge Orders: Discharge Order (Routine); Ordered 10/12/19 Ordered By: Ivana Klein Admission Data Admit Date/Time: 10/09/19 16:00 Attending Provider: Cam Navas Admit Provider: Alexandr Miller Primary Care Provider: Vick Roberts Other Providers: James Mace ; Prashant Dubois Other Interventions: Discharge Summary Assessment (RN) Last Done: 10/12/19 13:56 DC Date/Time DO NOT enter until pt leaves facility: 10/12/19 14:30 Supervising Physician Co-Signing Physician Notes Attending attestation and Discharge Note: Pt seen/examined, chart reviewed in detail, discharge care plan d/w RAD Klein. I agree with the wang components of her discharge documentation. 69yo male with severe PAD who presented with left leg weakness. MRI consistent with multiple subacute strokes in various locations suggestive of embolic source. One of the strokes was right parietal lobe which was the likely culprit for his LLE weakness. Seen by neurology, PT/OT/Speech, and also had usual w/u including CTA head/neck. CTA neck showed significant carotid stenosis as well as left-sided subclavian stenosis. Constellation of findings concerning for subclavian steal syndrome. Vascular surgery saw patient in consult; he will have f/u with vascular as an outpatient to determine next best step. Cont asa/plavix for secondary prevention -- unless we find a source of embolus then in that case anticoagulation would be initiated. Patient currently is wearing a 30-day holter monitor to exclude a.fib as the cause of his strokes. If this is negative may need to consider longer term monitoring (ie loop recorder). Defer to his outpatient physicians. Heavily advised to stop smoking if at all possible. Lastly, his lipitor was increased from 40mg to 80mg once daily in light of his strokes, severe PAD, etc. discharge exam: gen - NAD heart - RRR, s1 s2 lungs - occasional wheeze otherwise CTA b/l abd - soft NT ND BS+ ext - no edema, pulses 1+ b/l neuro - strength near 5/5 LLE; 5/5 RLE; b/l upper exts 5/5 speech clear, no facial droop Cam Navas MD Coding Level of Care Code D/C Day Management >30 mins Diagnoses Cerebrovascular accident (CVA) I63.9 Subclavian steal syndrome of left subclavian artery G45.8 Chronic occlusion of left subclavian vein I82.B22 Leg weakness R29.898 Peripheral vascular disease I73.9 UTI (urinary tract infection) N39.0 Benign prostatic hyperplasia N40.0 Diabetes mellitus type 2 in nonobese E11.9 Hyperlipidemia E78.5 Hypertension I10 COPD (chronic obstructive pulmonary disease) J44.9 Multinodular goiter E04.2
== END 2019-10-12 14:30 | disposition home or self-care (01) | DRG 65 ==
LOC: ED 05:55 → SUATTDRO 16:00 → 2N 16:00 → 3N 10-11 04:23 → 2N 10-11 18:32